=== PATIENT | female | born 1955 | race Caucasian/White ===

== ENCOUNTER 2017-10-30 08:06 | Inpatient (IN) ==
[2017-10-30 10:37] LABS: ABG Base Excess -2 mEq/L (-2 to 3); ABG HCO3 25 mEq/L (21-27); ABG Oxygen Saturation 68 % (95-98); ABG PCO2 56 mmHg (35-45); ABG PH 7.26 pH Units (7.32-7.45); ABG PO2 41 mmHg (85-104); ABG TCO2 27 mEq/L (20-26)
[2017-10-30] MEDS ORDERED: Naloxone 0.4 MG/ML INJ IVP PRN (10:37)
--- NOTE | 2017-10-30 10:51 | Internal Med History&Physical ---
Date of Encounter: 10/30/17 Time of Encounter: 10:00 Internal Medicine - H&P: HPI Chief complaint: Short summary of Admitted From: Hospital to Hospital Transfer Plans for Post Hospital Care: Home History of present illness: Patient is a 62-year-old female with past medical history significant for COPD, hypertension and being a 50 pack year smoker who presents as a transfer from [facility] on 10/30/17 due to acute hypoxic/hypercapnic respiratory failure secondary to COPD exacerbation. Patient reports a one-day history of worsening shortness of breath and increased nonproductive cough with wheezing. Patients breathing difficulty made her concerned and she decided to go to the [facility] ER for evaluation. At the ER in [facility], patient was found to have acute hypoxic/hypercapnic respiratory failure with respiratory acidosis and was placed on BiPAP for stabilization. Patient was subsequently transferred to [facility] for further evaluation. Patient does not wish to be intubated and has made herself a DNR CC. Past Med Surg Social Fam HX - Past Medical History Medical history: asthma, COPD, migraine Psychiatric history: depression - Past Surgical History Additional surgical history: TUBAL LIGATION - Social History Smoking Status: Current every day smoker Smokeless Tobacco Status: No Alcohol use: none Drug use: none - Additional Family History Additional family history: Noncontributory Internal Medicine - H&P: Meds Albuterol Sulfate [Ventolin Hfa] 18 gm IH DAILY 04/20/17 [History] Aspirin [Lo-Dose Aspirin EC] 81 mg PO DAILY 04/20/17 [History] Escitalopram [Lexapro] 20 mg PO DAILY 04/20/17 [History] Metoprolol [Lopressor] 25 mg PO BID 04/20/17 [History] Tiotropium Br/Olodaterol HCl [Stiolto Respimat Inhal [place]] 4 gm IH DAILY [History] Atorvastatin Calcium [Lipitor] 20 mg PO HS 10/30/17 [History] Buspirone HCl [Buspar] 7.5 mg PO BID 10/30/17 [History] Ipratropium/Albuterol Neb [Duoneb] 3 ml IH TID 10/30/17 [History] Roflumilast [Daliresp] 500 mcg PO DAILY 10/30/17 [History] 3 Allergy/AdvReac Type Severity Reaction Status Date / Time No Known Allergies Allergy Verified 10/30/17 10:09 All Systems PM: A 10-system review of systems was performed and is negative for pertinent findings except as documented above in the HPI. - Constitutional Vitals: Temp Pulse Resp BP Pulse Ox 97.9 F 105 18 121/79 93 10/30/17 09:53 10/30/17 09:53 10/30/17 09:53 10/30/17 09:53 10/30/17 09:53 General appearance: Present: severe distress - Eye Eye exam: Present: normal appearance - ENT ENT exam: Present: mucous membranes dry, mucous membranes moist - Respiratory Respiratory exam: Present: accessory muscle use, respiratory distress - Cardiovascular Cardiovascular exam: Present: RRR, +S1, +S2. Absent: diastolic murmur, gallop, rubs, systolic murmur - GI/Abdominal GI/Abdominal exam: Present: soft. Absent: distended - Extremities Exam Extremities exam: Absent: pedal edema - Neurological Exam Neurological exam: Present: oriented X3 - Psychiatric Psychiatric exam: Present: normal mood - Skin Skin exam: Present: normal color Internal Med - H&P Results - ABG Interpretation ABG results: 10/30/17 10:33 ABG pH 7.26 L ABG pCO2 56 H ABG pO2 41 L* ABG HCO3 25 ABG Total CO2 27 H ABG O2 Saturation 68 L ABG Base Excess -2 - Impressions ITS Impressions Chest X-Ray 10/30/17 10:23 IMPRESSION: 1. No acute cardiopulmonary disease. 2. Emphysema. D/ / 10/30/2017 10:44:37 Tawnya Palm MD / [facility] Interpreting Provider: Tawnya Palm MD - Assessment and plan (1) Acute respiratory failure with hypoxia and hypercapnia Current Visit: Yes Status: Acute Assessment and plan: Patient with reported acidic pH (7.2) and hypercapnia (CO2 64) on arterial blood gase taken at [facility] ABG has been repeated and results pending Chest x-ray ordered and pending Will continue BiPAP; patient is a DNR CC with no intubation Pulmonology has been consulted and appreciate any recommendations (2) COPD exacerbation Current Visit: Yes Status: Acute Assessment and plan: Chest x-ray pending Will treat with IV Solu-Medrol and IV azithromycin and continue BiPAP as above (3) HTN (hypertension), benign Current Visit: Yes Status: Acute Assessment and plan: Continue home medications (4) Mood disorder Current Visit: Yes Status: Acute Assessment and plan: Continue home medications (5) DVT prophylaxis Current Visit: Yes Status: Acute Assessment and plan: Subcutaneous heparin - Time Spent With Patient Total time spent is greater than 50% in coordination of care (as documented) at patient's floor/unit and/or counseling patient:
[2017-10-30] MEDS ORDERED: Azithromycin 500 MG in D5% in Water 250 ML IVPB SCH ×2 (11:00)
--- NOTE | 2017-10-30 11:07 | Pulmonology Consult Note ---
<LetiMarlybonnie M - Last Filed: 10/30/17 11:14> Date of Encounter: 10/30/17 Medications and Allergies Albuterol Sulfate [Ventolin Hfa] 18 gm IH DAILY 04/20/17 [History] Aspirin [Lo-Dose Aspirin EC] 81 mg PO DAILY 04/20/17 [History] Escitalopram [Lexapro] 20 mg PO DAILY 04/20/17 [History] Metoprolol [Lopressor] 25 mg PO BID 04/20/17 [History] Tiotropium Br/Olodaterol HCl [Stiolto Respimat Inhal [place]] 4 gm IH DAILY [History] Atorvastatin Calcium [Lipitor] 20 mg PO HS 10/30/17 [History] Buspirone HCl [Buspar] 7.5 mg PO BID 10/30/17 [History] Ipratropium/Albuterol Neb [Duoneb] 3 ml IH TID 10/30/17 [History] Roflumilast [Daliresp] 500 mcg PO DAILY 10/30/17 [History] 3 Allergy/AdvReac Type Severity Reaction Status Date / Time No Known Allergies Allergy Verified 10/30/17 10:09 All Systems: The remainder of the systems were reviewed and are negative Physical Examination Vital Signs: Vital Signs, Last 4 Hours Temp Pulse Resp BP Pulse Ox 10/30/17 09:53 97.9 F 105 18 121/79 93 Results - Laboratory Findings ABG ABG pH 7.26 pH Units (7.32-7.45) L 10/30/17 10:33 ABG pCO2 56 mmHg (35-45) H 10/30/17 10:33 ABG pO2 41 mmHg (85-104) L* 10/30/17 10:33 ABG O2 Saturation 68 % (95-98) L 10/30/17 10:33 Abnormal lab findings: Abnormal lab results ABG pH 7.26 pH Units (7.32-7.45) L 10/30/17 10:33 ABG pCO2 56 mmHg (35-45) H 10/30/17 10:33 ABG pO2 41 mmHg (85-104) L* 10/30/17 10:33 ABG Total CO2 27 mEq/L (20-26) H 10/30/17 10:33 ABG O2 Saturation 68 % (95-98) L 10/30/17 10:33 - Clinical Findings Intake & Output: Intake & Output 10/29/17 10/30/17 10/30/17 23:59 07:59 15:59 Weight 47.6 kg - Attending Attestation I examined this patient and my medical decision-making was reviewed with the Resident Physician. I agree with the documented findings, disposition and treatment plan as described except to the extent set forth below. Patient seen and examined. Labs, radiology, chart personally reviewed. Agree with resident's history and physical, assessment, plan with following comments: [employer] PROJECT MANAGER: Patient follows commands, Pulmonary: Acceptable oxygenation and ventilation on the noninvasive ventilation and she seems to be comfortable with adequate tidal volume. Patient is difficult stick and no need for more ABGs as long as patient mentation is normal and clinically will be sufficient to monitor the patient. Advised patient to quit smoking otherwise she will continue to have exacerbation of COPD and be compliance with her medications. Patient will be on bronchodilators and systemic steroid. As outpatient pulmonary rehabilitation will be important. Discussed with primary team and thank you for consultation <Rut Calderon - Last Filed: 10/30/17 21:19> Date of Encounter: 10/30/17 Time of Encounter: 11:06 Assessment and Plan (1) Acute respiratory failure with hypoxia and hypercapnia Current Visit: Yes Status: Acute Was transferred from [facility] ED due to respiratory distress. Her ABG showed respiratory acidosis, pH of 7.26 and PCO2 56, with PO2 41. -Does not want to be intubated -Continue Bipap, on 35 FiO2 with oxygen saturation of 97%. -Continue duonebs -Continue azithromycin -Continue IV solumedrol on 80 IV Q8HR, will decrease the dose in the morning (2) COPD exacerbation Current Visit: Yes Status: Acute Has history of COPD and was admitted 6 weeks ago for COPD exacerbation. She is on home oxygen of 3 liters daily and is not complain with it. Additionally, she continues to smoke and smokes 1 pack per day. Chest xray shows emphysematous changes. -Counseled on tobacco cessation -Continue nicotine transdermal patch -Continue BiPAP, duonebs, symbicort, IV solumedrol 80 mg Q8HR and azithromycin, day 1 History of Present Illness Consult date: 10/30/17 Requesting physician: Jamar Moreland Reason for consult: COPD Chief complaint: Shortness of breath History of present illness: Ms. Jolley is a 62 year old female who was seen at bedside this morning. She presented to the hospital due to shortness of breath. She has history of COPD and hypertension. She is on home oxygen 3 liters and a current smoker of 1 pack per day with 50 pack year history. She progressively worsening shortness of breath with increased use of her home oxygen. She was recently admitted for COPD exacerbation 6 weeks ago. She is not compliant on her home oxygen use and continues to smoke. She also elicits increased cough with white colored sputum production. She deneid recent travel but stated has been staying at the hospital with her sick mom for the past 2 weeks. Chest xray shows emphysematous changes. Her ABG was positive for hypoxemia with respiratory acidosis. She does not want to be intubated and signed papers for DNR/DNI. She denies fever, chills, nausea, vomiting or chest pain. Past Med Surg Social Fam HX - Past Medical History Medical history: asthma, COPD, migraine Psychiatric history: depression - Past Surgical History Additional surgical history: TUBAL LIGATION - Social History Smoking Status: Current every day smoker Smokeless Tobacco Status: No Alcohol use: none Drug use: none All Systems: The remainder of the systems were reviewed and are negative - Constitutional Constitutional: weight loss (unknown but endorsed weight loss), no chills, no fever(s) - EENT Nose, mouth and throat: no nasal congestion - Cardiovascular Cardiovascular: dyspnea, dyspnea on exertion, no chest pain, no diaphoresis - Respiratory Respiratory: cough (productive with white sputum), dyspnea, no wheezing - Gastrointestinal Gastrointestinal: no abdominal pain, no diarrhea - Neurological Neurological: no confusion, no weakness Physical Examination Vital Signs: Vital Signs, Last 4 Hours Temp Pulse Resp BP Pulse Ox 10/30/17 09:53 97.9 F 105 18 121/79 93 General appearance: alert (moderate repiratory distress) Eyes: nonicteric ENT: oropharynx moist Auscultation: left: rhonchi (left lober lobe), bilateral: diminished breath sounds (diminished in the lower lung lobes) Cardiovascular: regular rate and rhythm Gastrointestinal: normoactive bowel sounds, soft, non-tender Extremities: no edema (mild clubbing noted of all fingers) normal mental status (awake, alert and oriented to person, place and time) mood appropriate, affect normal Results - Laboratory Findings CBC and BMP: 10/30/17 11:18 10/30/17 11:18 ABG ABG pH 7.26 pH Units (7.32-7.45) L 10/30/17 10:33 ABG pCO2 56 mmHg (35-45) H 10/30/17 10:33 ABG pO2 41 mmHg (85-104) L* 10/30/17 10:33 ABG O2 Saturation 68 % (95-98) L 10/30/17 10:33 Abnormal lab findings: Abnormal lab results ABG pH 7.26 pH Units (7.32-7.45) L 10/30/17 10:33 ABG pCO2 56 mmHg (35-45) H 10/30/17 10:33 ABG pO2 41 mmHg (85-104) L* 10/30/17 10:33 ABG Total CO2 27 mEq/L (20-26) H 10/30/17 10:33 ABG O2 Saturation 68 % (95-98) L 10/30/17 10:33 - Diagnostic Findings Chest x-ray: image reviewed (emphysematous changes of all lung lobes) - Clinical Findings Intake & Output: Intake & Output 10/29/17 10/30/17 10/30/17 23:59 07:59 15:59 Weight 47.6 kg
[2017-10-30 11:29] LABS: Hematocrit 36.7 % (35.3-44.9); Hemoglobin 11.8 g/dL (11.5-15.4); Mean Corpuscular HGB Conc 32.2 g/dL (31.6-35.5); Mean Corpuscular Volume 93.4 fL (83.0-100.0); Mean Platelet Volume 9.4 fL (9.4-12.4); Platelet Count 187 K/mcL (140-400); Red Blood Count 3.93 M/mcL (3.82-4.97); Red Cell Distribution Width 13.2 % (11.5-14.5)
[2017-10-30] MEDS: Ipratropium/Albuterol Neb 3 ML IH SCH ×4 (11:32→23:41)
[2017-10-30 11:49] LABS: BUN/Creatinine Ratio 14 (6-26); Blood Urea Nitrogen 8 mg/dL (8-23); Calcium 8.6 mg/dL (8.6-10.3); Carbon Dioxide 21 mEq/L (23-29); Chloride 107 mEq/L (98-107); Glucose 158 mg/dL (70-105); Osmolality,Calculated 286 (280-300); Potassium 4.4 mEq/L (3.5-5.1); Sodium 137 mEq/L (136-145); eGFR For Non-African Americans > 60 (> 60)
[2017-10-30 11:51] LABS: Eosinophils # 0.1 K/mcL (0.0-0.6); Lymphocytes # 0.4 K/mcL (0.6-4.6); Neutrophils # 6.7 K/mcL (1.6-8.9); Platelet Estimate Normal (Normal)
[2017-10-30] MEDS: *HR* Heparin 5,000 UNIT/ML VIAL SQ SCH ×2 (12:27→21:16)
[2017-10-30] MEDS: MethylPREDNISolone 40 MG/ML VIAL IVP SCH ×2 (17:00→23:49)
[2017-10-30] MEDS: Budesonide/Formoterol 160/4.5 MDI IH SCH (22:35)
[2017-10-30] MEDS: Nicotine 21 MG PATCH.TD24 TD SCH (23:31)
[2017-10-31] MEDS: Ipratropium/Albuterol Neb 3 ML IH SCH ×6 (03:38→23:40)
[2017-10-31] MEDS: *HR* Heparin 5,000 UNIT/ML VIAL SQ SCH ×2 (05:57→15:14)
[2017-10-31] MEDS: Budesonide/Formoterol 160/4.5 MDI IH SCH ×2 (07:54→20:24)
[2017-10-31] MEDS: Aspirin Enteric Coated 81 MG Tablet PO SCH (08:34)
[2017-10-31] MEDS: Nicotine 21 MG PATCH.TD24 TD SCH (08:35)
[2017-10-31] MEDS: MethylPREDNISolone 40 MG/ML VIAL IVP SCH ×2 (08:35→15:15)
[2017-10-31] MEDS ORDERED: Patient Taking Own Medication 1 EACH PO SCH (09:00)
[2017-10-31] MEDS: Azithromycin 250 MG TABLET PO SCH (11:25)
--- NOTE | 2017-10-31 11:38 | Pulmonology Progress Note ---
Date of Encounter: 10/31/17 Time of Encounter: 11:00 Assessment and Plan (1) Acute and chronic respiratory failure Current Visit: Yes Status: Acute Agent presenting with acute on chronic hypoxic respiratory failure patient is off BiPAP doing well if she ends up and respiratory distress please use BiPAP when necessary. To continue current management of COPD. Does not do any exercise oxygen requirements before discharge. Might need 1 more day off steroids and antibiotics as patient is still moving not moving air as expected. Qualifiers: Respiratory failure complication: hypoxia Qualified Code(s): J96.21 - Acute and chronic respiratory failure with hypoxia (2) COPD exacerbation Current Visit: Yes Status: Acute Current regimen of bronchodilators, steroids, antibiotics. Reviewed with patient regarding outpatient COPD regimen seems to be adequate. Since she has frequent exacerbation she can be sent home on chronic azithromycin therapy that is to 250 mg every Tuesday. She will be sent home on steroid treatment taper over 12 days. Patient will need 6-8 weeks follow up with outpatient pulmonology patient might need one more day . Will sign off and call with questions . (3) Tobacco abuse counseling Current Visit: Yes Status: Acute Patient had tobacco abuse counseling was given in front of her family patient is contemplating to stop smoking. Subjective Principal diagnosis: acute exacerbation of COPD Interval history: Patient COPD symptoms are a lot better as she is off BiPAP and she eating and drinking says she feels a lot better than yesterday but she is not yet at baseline. She denies any chest pain, chest tightness, denies any fever or chills. Objective PUL Vital signs: Last Vital Signs Temp 98.2 F 10/31/17 10:44 Pulse 84 10/31/17 10:44 Resp 19 10/31/17 11:37 BP 107/67 10/31/17 10:44 Pulse Ox 97 10/31/17 11:37 General appearance: other (mild respiratory distress) Auscultation: left: rales, bilateral: diminished breath sounds, wheezes (some scattered wheezes ) Results - Laboratory Findings CBC and BMP: 10/30/17 11:18 10/30/17 11:18 ABG ABG pH 7.26 pH Units (7.32-7.45) L 10/30/17 10:33 ABG pCO2 56 mmHg (35-45) H 08/05/18 10:33 ABG pO2 41 mmHg (85-104) L* 10/30/17 10:33 ABG O2 Saturation 68 % (95-98) L 10/30/17 10:33 Abnormal lab findings: Abnormal lab results Lymphocytes # 0.4 K/mcL (0.6-4.6) L 10/30/17 11:18 ABG pH 7.26 pH Units (7.32-7.45) L 10/30/17 10:33 ABG pCO2 56 mmHg (35-45) H 10/30/17 10:33 ABG pO2 41 mmHg (85-104) L* 10/30/17 10:33 ABG Total CO2 27 mEq/L (20-26) H 10/30/17 10:33 ABG O2 Saturation 68 % (95-98) L 10/30/17 10:33 Carbon Dioxide 21 mEq/L (23-29) L 10/30/17 11:18 Creatinine 0.59 mg/dL (0.60-1.20) L 10/30/17 11:18 Glucose 158 mg/dL (70-105) H 10/30/17 11:18 - Clinical Findings Intake & Output: Intake & Output 10/30/17 10/31/17 10/31/17 23:59 07:59 15:59 Output Total 500 / 500 Balance -500 / -500 Weight 48.2 kg
--- NOTE | 2017-10-31 15:54 | Internal Med Progress Note ---
Hospitalist Progress Note - Encounter Date of Encounter: 10/31/17 Time of Encounter: 15:46 - Subjective Interval History: Patient is a 62-year-old female with past medical history significant for COPD, hypertension and being a 50 pack year smoker who presents as a transfer from [facility] on 10/30/17 due to acute hypoxic/hypercapnic respiratory failure secondary to COPD exacerbation. Patient reports a one-day history of worsening shortness of breath and increased nonproductive cough with wheezing. Patients breathing difficulty made her concerned and she decided to go to the [facility] ER for evaluation. At the ER in [facility], patient was found to have acute hypoxic/hypercapnic respiratory failure with respiratory acidosis and was placed on BiPAP for stabilization. Patient was subsequently transferred to [facility] for further evaluation. She is DNR CC. patient is doing better, able to be off BIPAP, she said she is feeling better, on nicotine patch, she is able to talk with full sentence. gerri chest pain, and dizziness. discussed to compliant with BIPAP. - Exam Vitals: Temp Pulse Resp BP Pulse Ox 98.2 F 103 19 107/67 97 10/31/17 15:32 10/31/17 15:32 10/31/17 15:45 10/31/17 15:45 10/31/17 15:45 Exam: CONSTITUTIONAL: patient appears as an age appropriate female in no acute distress. EYES Clear sclerae, bilateral pupils are equal, reactive to light. EMOI. RESPIRATORY: No accessory muscle use, bilateral diminished breath sounds to auscultation, no wheezing, no crackles/rales. CARDIOVASCULAR: Regular heart rate, normal S1 and S2, no murmurs GASTROINTESTINAL: bowel sounds present, soft, no tenderness. MUSCULOSKELETAL: Joints in normal range of motion, no clubbing, no edema, no cyanosis. Bilateral peripheral pulses 2+. NEUROLOGIC: CN II to XII are grossly intact, no focal neurological deficit. - Assessment and Plan (1) Acute respiratory failure with hypoxia and hypercapnia Current Visit: Yes Status: Acute Assessment and Plan: Patient has COPD on 3 L nasal cannula continuously at home. She presented with worsening shortness of breath, ABG shows hypoxia hyppercapnea She required a continuous BiPAP support. She feels much better, able to take BiPAP off for a break. We will continue IV steroids and BiPAP appreciate pulmonary consult help (2) COPD exacerbation Current Visit: Yes Status: Acute Assessment and Plan: continue azithromycin, solumedral 80 mg Q8, BiPAP, scheduled Nebs (3) HTN (hypertension), benign Current Visit: Yes Status: Acute Assessment and Plan: metoprolol (4) Mood disorder Current Visit: Yes Status: Acute DVT Prophylaxis: heparin SC - Time Spent with Patient Total time spent is greater than 50% in coordination of care (as documented) at patient's floor/unit and/or counseling patient: 25 - 35 minutes Plan of Care Discussed with: patient Internal Medicine: Result - Labs CBC & Chem 7: 10/30/17 11:18 10/30/17 11:18 - ABG Interpretation ABG results: ABG ABG pH 7.26 pH Units (7.32-7.45) L 10/30/17 10:33 ABG pCO2 56 mmHg (35-45) H 10/30/17 10:33 ABG pO2 41 mmHg (85-104) L* 10/30/17 10:33 ABG O2 Saturation 68 % (95-98) L 10/30/17 10:33
[2017-11-01] MEDS: MethylPREDNISolone 40 MG/ML VIAL IVP SCH ×4 (00:43→23:39)
[2017-11-01] MEDS: *HR* Heparin 5,000 UNIT/ML VIAL SQ SCH ×4 (00:43→23:39)
[2017-11-01] MEDS: Ipratropium/Albuterol Neb 3 ML IH SCH ×6 (03:45→22:50)
[2017-11-01 05:28] LABS: Basophils % 0.1 %; Hematocrit 31.1 % (35.3-44.9); Hemoglobin 10.6 g/dL (11.5-15.4); Immature Granulocytes % 0.6 % (0-4); Lymphocytes # 0.6 K/mcL (0.6-4.6); Lymphocytes % 5.7 %; Mean Corpuscular HGB Conc 34.1 g/dL (31.6-35.5); Mean Corpuscular Hemoglobin 30.5 pg (28.0-33.3); Mean Corpuscular Volume 89.6 fL (83.0-100.0); Mean Platelet Volume 9.5 fL (9.4-12.4); Monocytes # 0.1 K/mcL (0.0-1.3); Monocytes % 1.3 %; Platelet Count 175 K/mcL (140-400); Red Blood Count 3.47 M/mcL (3.82-4.97); Red Cell Distribution Width 13.3 % (11.5-14.5); Segmented Neutrophils % 92.3 %
[2017-11-01 05:49] LABS: BUN/Creatinine Ratio 33 (6-26); Blood Urea Nitrogen 16 mg/dL (8-23); Calcium 8.6 mg/dL (8.6-10.3); Carbon Dioxide 25 mEq/L (23-29); Chloride 105 mEq/L (98-107); Glucose 142 mg/dL (70-105); Magnesium 2.3 mg/dL (1.6-2.6); Osmolality,Calculated 286 (280-300); Potassium 3.8 mEq/L (3.5-5.1); Sodium 136 mEq/L (136-145); eGFR For Non-African Americans > 60 (> 60)
[2017-11-01] MEDS: Budesonide/Formoterol 160/4.5 MDI IH SCH ×2 (07:43→19:36)
[2017-11-01] MEDS: Aspirin Enteric Coated 81 MG Tablet PO SCH (08:49)
[2017-11-01] MEDS: Nicotine 21 MG PATCH.TD24 TD SCH (08:49)
[2017-11-01] MEDS: Roflumilast [Daliresp] 500 MCG PO SCH (08:51)
[2017-11-01] MEDS: Azithromycin 250 MG TABLET PO SCH (11:32)
--- NOTE | 2017-11-01 15:05 | Internal Med Progress Note ---
Hospitalist Progress Note - Encounter Date of Encounter: 11/01/17 Time of Encounter: 15:03 - Subjective Interval History: Patient is a 62-year-old female with past medical history significant for COPD, hypertension and being a 50 pack year smoker who presents as a transfer from [facility] on 10/30/17 due to acute hypoxic/hypercapnic respiratory failure secondary to COPD exacerbation. Patient reports a one-day history of worsening shortness of breath and increased nonproductive cough with wheezing. Patients breathing difficulty made her concerned and she decided to go to the [facility] ER for evaluation. At the ER in [facility], patient was found to have acute hypoxic/hypercapnic respiratory failure with respiratory acidosis and was placed on BiPAP for stabilization. Patient was subsequently transferred to [facility] for further evaluation. She is DNR CC. Patient is doing much better today on 3 L nasal cannula, she has bilateral good air movement. Scattered wheezing. But she still have extremely shortness of breasts with mild exertion. Has not been able to cough up any mucus. We will reduce steroids dose, possible discharge tomorrow. case discussed with pulmonary, they signed off today, recommended azithromycin 250 on Tuesday. - Exam Vitals: Temp Pulse Resp BP Pulse Ox 97.8 F 92 16 116/72 96 11/01/17 12:03 11/01/17 12:03 11/01/17 12:03 11/01/17 06:34 11/01/17 12:03 - Assessment and Plan (1) Acute respiratory failure with hypoxia and hypercapnia Current Visit: Yes Status: Acute Assessment and Plan: Patient has COPD on 3 L nasal cannula continuously at home. She presented with worsening shortness of breath, ABG shows hypoxia hyppercapnea She required a continuous BiPAP support. She feels much better, on 3 L NC, noctunal BIPAP, reduced IV steroid to 40 mg Q8. will need to discharge on azithromycin 250 mg MWF per pulmonary (2) COPD exacerbation Current Visit: Yes Status: Acute (3) HTN (hypertension), benign Current Visit: Yes Status: Acute (4) Mood disorder Current Visit: Yes Status: Acute - Time Spent with Patient Total time spent is greater than 50% in coordination of care (as documented) at patient's floor/unit and/or counseling patient: 25 - 35 minutes Internal Medicine: Result - Labs CBC & Chem 7: 11/01/17 04:55 11/01/17 04:55 Labs: Short CBC 11/01/17 Range/Units 04:55 WBC 9.8 (4.3-11.1) K/mcL Hgb 10.6 L (11.5-15.4) g/dL Hct 31.1 L (35.3-44.9) % Plt Count 175 (140-400) K/mcL Neutrophils # 9.0 H (1.6-8.9) K/mcL BMP 11/01/17 04:55 Sodium 136 Potassium 3.8 Chloride 105 Carbon Dioxide 25 BUN 16 Creatinine 0.48 L Glucose 142 H Calcium 8.6 - ABG Interpretation ABG results: ABG ABG pH 7.26 pH Units (7.32-7.45) L 10/30/17 10:33 ABG pCO2 56 mmHg (35-45) H 10/30/17 10:33 ABG pO2 41 mmHg (85-104) L* 10/30/17 10:33 ABG O2 Saturation 68 % (95-98) L 10/30/17 10:33 Consult Discharge Plan - Plan Referrals: Tuyet Fisher, PROGRAM DIRECTOR SUBSTANCE ABUSE [Primary Care Provider] -
[2017-11-02] MEDS: Ipratropium/Albuterol Neb 3 ML IH SCH ×3 (04:03→11:18)
[2017-11-02] MEDS: *HR* Heparin 5,000 UNIT/ML VIAL SQ SCH ×2 (06:04→14:22)
[2017-11-02] MEDS: Budesonide/Formoterol 160/4.5 MDI IH SCH (07:23)
[2017-11-02 07:58] VITALS: BP 132/73
[2017-11-02] MEDS: Aspirin Enteric Coated 81 MG Tablet PO SCH (08:54)
[2017-11-02] MEDS: MethylPREDNISolone 40 MG/ML VIAL IVP SCH (08:55)
[2017-11-02] MEDS: Nicotine 21 MG PATCH.TD24 TD SCH (08:55)
[2017-11-02] MEDS: Roflumilast [Daliresp] 500 MCG PO SCH (09:00)
[2017-11-02] MEDS: Azithromycin 250 MG TABLET PO SCH (11:30)
[2017-11-02] MEDS ORDERED: predniSONE 20 MG TABLET PO ONE (13:52)
--- NOTE | 2017-11-02 13:56 | Discharge Summary ---
- NOTES TO OUTPATIENT PROVIDER Notes to Outpatient Provider: Patient was admitted for severe COPD exacerbation. Will be discharged on 12 day prednisone taper. Per pulmonology recommendations we will continue 250 mg of azithromycin chronically every Tuesday and Tuesday. Patient will be started on chronic azithromycin therapy and should be weaned off Lexapro due to QT prolongation; she has tolerated this combination many times before per patient. Date of Encounter: 11/02/17 Time of Encounter: 13:53 - Discharge Diagnosis (1) Acute respiratory failure with hypoxia and hypercapnia Priority: Primary Status: Acute (2) COPD exacerbation Priority: Secondary Status: Acute (3) HTN (hypertension), benign Priority: Secondary Status: Acute (4) Mood disorder Priority: Secondary Status: Acute (5) DVT prophylaxis Priority: Secondary Status: Acute (6) Tobacco dependence due to cigarettes Priority: Secondary Status: Acute Assessment and Plan: Counseled on cessation Hospital course: Ms. Knight is a 62 year old female who presented to the emergency department with shortness of breath and severe respiratory failure. Patient noticed to be hypoxic and hypercapnic and had a respiratory acidosis. Due to the patient's wish to not be intubated she was put on noninvasive ventilation and high-dose steroids. The patient improved rapidly over a few days and has been off BiPAP for over almost 2 days at time of discharge. Patient steroids were weaned in the hospital and will be continued as a 12 day taper that was extending to the patient and prescription was given. Pulmonology saw the patient and also recommended chronic azithromycin therapy with 250 mg every Tuesday due to her frequent exacerbations. She was given prescription for this as well. Due to the patient's chronic azithromycin therapy now extending to the patient that she will need to be weaned off Lexapro by primary care physician due to QT prolongation; patient is aware of this however she has tolerated this medication combination many times in the past. Discharge patient did not have any complaints and has very good air movement with almost no wheezing. Patient will continue on her home oxygen therapy at 3 L/m. Patient was counseled many times a smoking cessation throughout her stay. It was extending to the patient that she will likely have frequent exacerbations due to her continued smoking and severity of her COPD. Discharge discussed with: patient, nurse Time spent discussing smoking cessation with patient: 3 to 10 minutes - Time Spent with Patient Total time spent providing and/or coordinating discharge services: Greater than 30 minutes - Discharge Medications Prescriptions: Azithromycin [Zithromax] 250 mg PO 3XW 30 Days #15 tablet predniSONE [PredniSONE] 10 mg PO DAILY 12 Days #42 tablet Home Medications: Albuterol Sulfate [Ventolin Hfa] 18 gm IH DAILY 04/20/17 [History] Aspirin [Lo-Dose Aspirin EC] 81 mg PO DAILY 04/20/17 [History] Escitalopram [Lexapro] 20 mg PO DAILY 04/20/17 [History] Metoprolol [Lopressor] 25 mg PO BID 04/20/17 [History] Tiotropium Br/Olodaterol HCl [Stiolto Respimat Inhal [place]] 4 gm IH DAILY [History] Atorvastatin Calcium [Lipitor] 20 mg PO HS 10/30/17 [History] Buspirone HCl [Buspar] 7.5 mg PO BID 10/30/17 [History] Ipratropium/Albuterol Neb [Duoneb] 3 ml IH TID 10/30/17 [History] Roflumilast [Daliresp] 500 mcg PO DAILY 10/30/17 [History] Azithromycin [Zithromax] 250 mg PO 3XW 30 Days #15 tablet 11/02/17 [Rx] predniSONE [PredniSONE] 10 mg PO DAILY 12 Days #42 tablet 11/02/17 [Rx] Allergies/Adverse Reactions: 3 Allergy/AdvReac Type Severity Reaction Status Date / Time No Known Allergies Allergy Verified 10/30/17 10:09 Date of admission: 10/31/17 17:45 Primary care physician: Tuyet Fisher CNP Consults: 10/30/17 10:47 Consult to Pulmonology [CONS] Routine Consulting Provider: [facility] Reason for Consult: COPD exacerbation with acute respiratory failure Call Completed: Yes - Constitutional Vitals: Temp Pulse Resp BP Pulse Ox 97.9 F 105 18 132/73 97 11/02/17 07:57 11/02/17 07:57 11/02/17 11:18 11/02/17 07:57 11/02/17 11:18 General appearance: Present: severe distress Exam: Constitutional: No acute distress, Alert, appears comfortable Psych: AAO x 3 HEENT: NCAT, EOMI Neck: supple, no JVD Cardio: regular rate and rhythm, +s1s2, no murmurs/rubs/gallops, no JVD Resp: Slightly diminished breath sounds but very good air exchange, faint expiratory wheezes, no respiratory distress Abd: soft, non tender/non distended, positive bowel sounds, no gaurding/reboud/ ridgitity Extremities: no clubbing/cyanosis/edema appreciated Neuro: no focal deficits appreciated Lymph: no cervical/supraclavicular adenopahty apprecitated - Patient Status Disposition: Home, Self-Care Condition: Good Overall status at discharge: patient is back to baseline - Discharge Instructions Instructions: Acute Respiratory Distress Syndrome (DC), How to Stop Smoking (DC ), Chronic Obstructive Pulmonary Disease (DC) Follow Up With: Tuyet Fisher SHIRT FOLDER [Primary Care Provider] - - Diet and Activity Activity: increase activity as tolerated Diet: advance to your usual diet
== END 2017-11-02 14:49 | disposition home or self-care (01) | DRG 190 ==
LOC: 2ANU → SUATTDRO 09:38
PROVIDERS: ADMIT Hospitalist; ATTEND Hospitalist

== ENCOUNTER 2017-11-25 01:47 | Observation (INO) ==
[2017-11-25] MEDS ORDERED: Naloxone 0.4 MG/ML INJ IVP PRN (05:22)
--- NOTE | 2017-11-25 05:30 | Internal Med History&Physical ---
<Lobo Armenta - Last Filed: 11/25/17 05:26> Date of Encounter: 11/25/17 Time of Encounter: 05:27 Internal Medicine - H&P: HPI Chief complaint: Shortness of breath Admitted From: Hospital to Hospital Transfer Plans for Post Hospital Care: Home History of present illness: Ms. Knight is a 62 year old female with history of COPD on 3 L oxygen at home presented with chief complaint of shortness of breath at [facility]. Patient reports her shortness of breath started yesterday and progressively worsened with worsening cough and sputum production. She is usually on 3 L oxygen and had to increase it to 5 L. Her symptoms were refractory to nebulizer and albuterol inhaler treatments. She denies fevers, chills, congestion, rhinorrhea, chest pain sick contacts. She is currently smoker trying to quit. Reports she has been under a lot of stress as her mother just a few days ago and her son is getting tomorrow. At [facility] ABG was done which showed pH of 7.27 and a PCO2 of 68, PO2 93 bicarbonate of 31. She was placed on BiPAP and pH improved to 7.3 and PCO2 52. She was then transferred to [facility] for further treatment. Past Med Surg Social Fam HX - Past Medical History Medical history: asthma, COPD, migraine Psychiatric history: depression - Past Surgical History Additional surgical history: TUBAL LIGATION - Social History Smoking Status: Current every day smoker Smokeless Tobacco Status: No Alcohol use: none Drug use: none Internal Medicine - H&P: Meds Albuterol Sulfate [Ventolin Hfa] 18 gm IH DAILY 04/20/17 [History] Aspirin [Lo-Dose Aspirin EC] 81 mg PO DAILY 04/20/17 [History] Escitalopram [Lexapro] 20 mg PO DAILY 04/20/17 [History] Metoprolol [Lopressor] 25 mg PO BID 04/20/17 [History] Tiotropium Br/Olodaterol HCl [Stiolto Respimat Inhal [place]] 4 gm IH DAILY [History] Atorvastatin Calcium [Lipitor] 20 mg PO HS 10/30/17 [History] Buspirone HCl [Buspar] 7.5 mg PO BID 10/30/17 [History] Ipratropium/Albuterol Neb [Duoneb] 3 ml IH TID 10/30/17 [History] Roflumilast [Daliresp] 500 mcg PO DAILY 10/30/17 [History] Azithromycin [Zithromax] 250 mg PO 3XW 30 Days #15 tablet 11/02/17 [Rx] predniSONE [PredniSONE] 10 mg PO DAILY 12 Days #42 tablet 11/02/17 [Rx] 3 Allergy/AdvReac Type Severity Reaction Status Date / Time No Known Allergies Allergy Verified 10/30/17 10:09 All Systems PM: A 10-system review of systems was performed and is negative for pertinent findings except as documented above in the HPI. Review of systems: Constitutional: Denies fever, chills. Denies weight loss HEENT: Denies headache, vision changes, neck pain, sore throat, rhinorrhea Heart: Denies chest pain palpitations Lungs: Poor shortness of breath, cough, sputum production Abdomen: Denies abdominal pain nausea vomiting diarrhea Back: Denies back pain Kidney: Denies dysuria, hematuria Skin: Denies rash, lesions Extremities: Denies swelling, pain Neuro: Denies numbness and tingling - Constitutional Vitals: Temp Pulse Resp BP Pulse Ox 97.9 F 100 21 132/77 99 11/25/17 04:25 11/25/17 04:25 11/25/17 04:25 11/25/17 04:25 11/25/17 04:25 Exam: General: Pleasant, thin without distress HEENT: Head atraumatic, normocephalic, EOMI, PERRL, neck nontender to palpation , absent lymphadenopathy, Moist Mucous Membranes, Heart: Sinus tachycardia Lungs: Bilaterally diminished, wheezing, on BiPAP Abdomen: Soft nontender, nondistended positive bowel sounds Skin: warm and dry, absent rash Extremities: Absent pedal edema, Neuro: Cranial nerves II through XII intact, UE and LE sensation equal bilaterally, UE and LEstrength 5/5, alert oriented 3, Vascular: Pedal and radial pulses 2 out of 4 - Assessment and plan (1) Acute respiratory failure with hypoxia and hypercapnia Current Visit: Yes Status: Acute Assessment and plan: 62-year-old female presents with chief, shortness of breath She has a extensive history of tobacco use, COPD Secondary to COPD exacerbation requiring 5 L oxygen usually on 3 L at home ABG shows a pH of 7.2 with a PCO2 of 68 which then improved with BiPAP to pH of 7.3 and a PCO2 of 52 Lung exam shows diffuse wheezing bilaterally We will obtain chest x-ray Patient is afebrile with a normal white blood cell count Plan: We will start scheduled DuoNeb's, steroids, azithromycin. We will continue BiPAP (2) COPD exacerbation Current Visit: Yes Status: Acute Assessment and plan: Patient presents with worsening cough, shortness of breath, wheezing, increasing oxygen requirements, worsening sputum production Chest x-ray DuoNeb's, prednisone, azithromycin. (3) HTN (hypertension), benign Current Visit: Yes Status: Acute Assessment and plan: Patient has history of hypertension Controlled Continue metoprolol (4) DVT prophylaxis Current Visit: Yes Status: Acute Assessment and plan: Heparin subcutaneous (5) Tobacco abuse counseling Current Visit: Yes Status: Acute Assessment and plan: Patient educated on smoking cessation. Reports she is trying to quit. Her mother just a few days back and she has been under a lot of stress and increased her use of cigarettes. - Time Spent With Patient Total time spent is greater than 50% in coordination of care (as documented) at patient's floor/unit and/or counseling patient: <Timmy Silvestre - Last Filed: 11/25/17 06:25> Date of Encounter: 11/25/17 Internal Medicine - H&P: HPI History of present illness: Ms. Knight is a 62 year old female All Systems PM: A 10-system review of systems was performed and is negative for pertinent findings except as documented above in the HPI. - Constitutional Vitals: Temp Pulse Resp BP Pulse Ox 97.9 F 100 21 132/77 99 11/25/17 04:25 11/25/17 04:25 11/25/17 04:25 11/25/17 04:25 11/25/17 04:25 Internal Med - H&P Results - Labs CBC & Chem 7: 11/25/17 05:32 Labs: BMP 11/25/17 05:32 Sodium 136 Potassium 4.4 Chloride 108 H Carbon Dioxide 24 BUN 12 Creatinine 0.46 L Glucose 161 H Calcium 8.6 - Assessment and plan (1) HTN (hypertension), benign Current Visit: Yes Status: Acute (2) DVT prophylaxis Current Visit: Yes Status: Acute (3) Acute respiratory failure with hypoxia and hypercapnia Current Visit: Yes Status: Acute (4) COPD exacerbation Current Visit: Yes Status: Acute (5) Tobacco abuse counseling Current Visit: Yes Status: Acute - Time Spent With Patient Total time spent is greater than 50% in coordination of care (as documented) at patient's floor/unit and/or counseling patient: - Attending Attestation 62-year-old woman with a history of chronic respiratory failure due to COPD who remains tobacco dependent presenting on transfer from outside hospital where she presented with increasing shortness of breath and chest tightness and was found to have acute hypercapnic respiratory failure. She was placed on BiPAP with improvement in her clinical status and also in her ABG findings. She is transferred here for ongoing care as in their hospital Bipap patients are not admitted. On my assessment she was seen sitting comfortably in bed with her mask in place stating that her breathing had improved. She reports occasional cough that is productive of scant sputum and no associated chest pain. Physical exam remarkable for reduced air entry bilaterally with scattered wheezes. No peripheral signs of edema. Labs reviewed from outside hospital were remarkable for an APG pH of 7.22 which increased to 7.33 and PCO2 reduction from 69 to 55. We will continue management for acute hypercapnic hypoxic respiratory failure due to COPD exacerbation with BiPAP therapy here and place on prednisone 1 mg/ kg daily with standing nebulizer therapy of albuterol and ipratropium every 4 hours. Consider repeat ABG during the day and discontinuation of BiPAP so she can eat. Monitor on supplemental oxygen to maintain O2 saturation above 92%. May benefit from short course of azithromycin. Ongoing counseling was given for her nicotine habit and resources made available as needed. Rest of management per resident's note.
[2017-11-25] MEDS: *HR* Heparin 5,000 UNIT/ML VIAL SQ SCH ×3 (05:57→21:55)
[2017-11-25] MEDS ORDERED: methylPREDNISolone 125 MG/2 ML VIAL IVP SCH (06:00)
[2017-11-25 06:10] LABS: BUN/Creatinine Ratio 26 (6-26); Blood Urea Nitrogen 12 mg/dL (8-23); Calcium 8.6 mg/dL (8.6-10.3); Carbon Dioxide 24 mEq/L (23-29); Chloride 108 mEq/L (98-107); Glucose 161 mg/dL (70-105); Osmolality,Calculated 285 (280-300); Potassium 4.4 mEq/L (3.5-5.1); Sodium 136 mEq/L (136-145); eGFR For Non-African Americans > 60 (> 60)
[2017-11-25 07:03] LABS: Hematocrit 34.4 % (35.3-44.9); Hemoglobin 11.3 g/dL (11.5-15.4); Mean Corpuscular HGB Conc 32.8 g/dL (31.6-35.5); Mean Corpuscular Hemoglobin 31.4 pg (28.0-33.3); Mean Corpuscular Volume 95.6 fL (83.0-100.0); Platelet Count 187 K/mcL (140-400); Red Cell Distribution Width 13.2 % (11.5-14.5)
[2017-11-25 07:53] LABS: Lymphocytes # 0.3 K/mcL (0.6-4.6); Neutrophils # 4.4 K/mcL (1.6-8.9)
[2017-11-25 07:55] LABS: Platelet Estimate Normal (Normal)
[2017-11-25] MEDS: Ipratropium/Albuterol Neb 3 ML IH SCH ×6 (08:00→23:28)
[2017-11-25] MEDS ORDERED: Azithromycin 250 MG TABLET PO SCH ×2 (09:00→10:15)
[2017-11-25] MEDS ORDERED: predniSONE 20 MG TABLET PO SCH (09:00)
[2017-11-25] MEDS: Aspirin Enteric Coated 81 MG Tablet PO SCH (09:28)
--- NOTE | 2017-11-25 11:43 | Event Note ---
Date of Encounter: 11/25/17 Time of Encounter: 09:50 62-year-old female with history of oxygen dependent COPD is admitted for hypoxic and hypercarbic resting failure secondary to COPD exacerbation. Unable to find CXR record from outside hospital so will obtain on here. Required BiPaP initially which can now be intermittently used. Continue IV solumedrol, azithromycin, and bronchodilators. May need home BiPaP evaluation before d/c.
[2017-11-25] MEDS: MethylPREDNISolone 40 MG/ML VIAL IVP SCH ×2 (14:28→21:54)
[2017-11-25] MEDS ORDERED: GuaiFENesin Liq 200 MG/10 ML UDC PO PRN (16:19)
[2017-11-26] MEDS: Ipratropium/Albuterol Neb 3 ML IH SCH ×6 (03:00→23:02)
[2017-11-26 04:28] LABS: Basophils % 0.2 %; Hematocrit 29.3 % (35.3-44.9); Lymphocytes # 0.7 K/mcL (0.6-4.6); Lymphocytes % 11.4 %; Mean Corpuscular HGB Conc 32.8 g/dL (31.6-35.5); Mean Corpuscular Hemoglobin 30.3 pg (28.0-33.3); Mean Corpuscular Volume 92.4 fL (83.0-100.0); Mean Platelet Volume 9.4 fL (9.4-12.4); Monocytes # 0.2 K/mcL (0.0-1.3); Monocytes % 3.8 %; Neutrophils # 5.1 K/mcL (1.6-8.9); Platelet Count 200 K/mcL (140-400); Red Blood Count 3.17 M/mcL (3.82-4.97); Red Cell Distribution Width 13.2 % (11.5-14.5); Segmented Neutrophils % 83.6 %
[2017-11-26 04:35] LABS: Hemoglobin 9.6 g/dL (11.5-15.4)
[2017-11-26 04:55] LABS: BUN/Creatinine Ratio 28 (6-26); Blood Urea Nitrogen 13 mg/dL (8-23); Calcium 8.9 mg/dL (8.6-10.3); Carbon Dioxide 25 mEq/L (23-29); Chloride 105 mEq/L (98-107); Glucose 147 mg/dL (70-105); Osmolality,Calculated 287 (280-300); Potassium 3.8 mEq/L (3.5-5.1); Sodium 137 mEq/L (136-145); eGFR For Non-African Americans > 60 (> 60)
[2017-11-26] MEDS: *HR* Heparin 5,000 UNIT/ML VIAL SQ SCH ×3 (05:54→20:31)
[2017-11-26] MEDS: MethylPREDNISolone 40 MG/ML VIAL IVP SCH ×3 (05:54→20:26)
--- NOTE | 2017-11-26 09:19 | Internal Med Progress Note ---
Hospitalist Progress Note - Encounter Date of Encounter: 11/26/17 Time of Encounter: 09:16 - Subjective Interval History: Ms. Knight is a 62 year old female with history of COPD on 3 L oxygen at home presented with chief complaint of shortness of breath at [facility]. Patient reports her shortness of breath started yesterday and progressively worsened with worsening cough and sputum production. She is usually on 3 L oxygen and had to increase it to 5 L. She is currently smoker trying to quit. Reports she has been under a lot of stress as her mother just a few days ago and her son is getting tomorrow. At [facility] ABG was done which showed pH of 7.27 and a PCO2 of 68, PO2 93 bicarbonate of 31. She was placed on BiPAP and pH improved to 7.3 and PCO2 52. She was then transferred to [facility] for further treatment. Patient is doing better, able to come off BIPAP, on 3 l NC, but she has diminished BS, very SOB Will continue IV steroids she was discharged on azithromycin QoD, will change to levaquin add incentive spirometry - Exam Vitals: Temp Pulse Resp BP Pulse Ox 98.6 F 133 16 105/66 95 11/26/17 08:34 11/26/17 08:34 11/26/17 08:34 11/26/17 08:34 11/26/17 08:34 Exam: CONSTITUTIONAL: patient appears as an age appropriate female in no acute distress. EYES Clear sclerae, bilateral pupils are equal, reactive to light. EMOI. RESPIRATORY: No accessory muscle use, bilateral diminished BS to auscultation, no wheezing, no crackles/rales. CARDIOVASCULAR: Regular heart rate, normal S1 and S2, no murmurs GASTROINTESTINAL: bowel sounds present, soft, no tenderness. MUSCULOSKELETAL: Joints in normal range of motion, no clubbing, no edema, no cyanosis. Bilateral peripheral pulses 2+. NEUROLOGIC: CN II to XII are grossly intact, no focal neurological deficit. - Assessment and Plan (1) Acute respiratory failure with hypoxia and hypercapnia Current Visit: No Status: Acute Assessment and Plan: 62-year-old female presents with chief, shortness of breath She has a extensive history of tobacco use, COPD Secondary to COPD exacerbation, she waas just discharged on 11/02 on azithromycin requiring 5 L oxygen usually on 3 L at home ABG shows a pH of 7.2 with a PCO2 of 68 which then improved with BiPAP to pH of 7.3 and a PCO2 of 52 Lung exam shows diffuse wheezing bilaterally, CXR is negativ efor pneumona Patient is afebrile with a normal white blood cell count continue scheduled DuoNeb's, steroids,change azithromycin to levaquin add incentive spirometry (2) COPD exacerbation Current Visit: No Status: Acute Assessment and Plan: active smoking, she has deminished BS, SOB with minimal exertion contineu ATB, IV steroids, scheduled Nebs (3) HTN (hypertension), benign Current Visit: Yes Status: Acute Assessment and Plan: contineu home meds (4) DVT prophylaxis Current Visit: Yes Status: Acute Assessment and Plan: heparin SC (5) Tobacco abuse counseling Current Visit: Yes Status: Acute Assessment and Plan: smoking cessation discussed - Time Spent with Patient Total time spent is greater than 50% in coordination of care (as documented) at patient's floor/unit and/or counseling patient: 25 - 35 minutes Internal Medicine: Result - Labs CBC & Chem 7: 11/26/17 03:37 11/26/17 03:37 Labs: Short CBC 11/26/17 Range/Units 03:37 WBC 6.1 (4.3-11.1) K/mcL Hgb 9.6 L D (11.5-15.4) g/dL Hct 29.3 L (35.3-44.9) % Plt Count 200 (140-400) K/mcL Neutrophils # 5.1 (1.6-8.9) K/mcL BMP 11/26/17 03:37 Sodium 137 Potassium 3.8 Chloride 105 Carbon Dioxide 25 BUN 13 Creatinine 0.47 L Glucose 147 H Calcium 8.9 - Impressions Impressions Chest X-Ray 11/25/17 11:06 IMPRESSION: 1. No acute abnormality. D/ / Jose Juan Noyola MD / Jose Juan Noyola MD Interpreting Provider: Jose Juan Noyola MD Consult Discharge Plan - Plan Referrals: Tuyet Fisher, MEASUREMENT ANALYST [Primary Care Provider] -
[2017-11-26] MEDS: Aspirin Enteric Coated 81 MG Tablet PO SCH (09:51)
[2017-11-26] MEDS: levoFLOXacin 750 MG TABLET PO SCH (09:51)
[2017-11-26] MEDS ORDERED: Azithromycin 250 MG TABLET PO SCH (10:15)
[2017-11-26] MEDS: Nicotine 21 MG PATCH.TD24 TD SCH (11:25)
[2017-11-27] MEDS: Ipratropium/Albuterol Neb 3 ML IH SCH ×6 (03:08→23:22)
[2017-11-27] MEDS: MethylPREDNISolone 40 MG/ML VIAL IVP SCH ×2 (05:37→16:59)
[2017-11-27] MEDS: *HR* Heparin 5,000 UNIT/ML VIAL SQ SCH ×3 (06:06→21:54)
--- NOTE | 2017-11-27 09:26 | Internal Med Progress Note ---
Hospitalist Progress Note - Encounter Date of Encounter: 11/27/17 Time of Encounter: 09:22 - Subjective Interval History: Ms. Knight is a 62 year old female with history of COPD on 3 L oxygen at home presented with chief complaint of shortness of breath at [facility]. Patient reports her shortness of breath started yesterday and progressively worsened with worsening cough and sputum production. She is usually on 3 L oxygen and had to increase it to 5 L. She is currently smoker trying to quit. Reports she has been under a lot of stress as her mother just a few days ago and her son is getting tomorrow. At [facility] ABG was done which showed pH of 7.27 and a PCO2 of 68, PO2 93 bicarbonate of 31. She was placed on BiPAP and pH improved to 7.3 and PCO2 52. She was then transferred to [facility] for further treatment. Patient is doing better, able to come off BIPAP, on 3 l NC, but she has diminished BS, still very SOB with mild exertion, congested, unalbe to cough up sputum Will continue IV steroids and levaquin add incentive spirometry possible change to oral steroid tomorrow - Exam Vitals: Temp Pulse Resp BP Pulse Ox 98.0 F 85 15 111/67 98 11/27/17 06:46 11/27/17 06:46 11/27/17 06:46 11/27/17 06:46 11/27/17 06:46 Exam: CONSTITUTIONAL: patient appears as an age appropriate female in no acute distress. EYES Clear sclerae, bilateral pupils are equal, reactive to light. EMOI. RESPIRATORY: No accessory muscle use, bilateral diminished BS to auscultation, no wheezing, no crackles/rales. CARDIOVASCULAR: Regular heart rate, normal S1 and S2, no murmurs GASTROINTESTINAL: bowel sounds present, soft, no tenderness. MUSCULOSKELETAL: Joints in normal range of motion, no clubbing, no edema, no cyanosis. Bilateral peripheral pulses 2+. NEUROLOGIC: CN II to XII are grossly intact, no focal neurological deficit. - Assessment and Plan (1) Acute respiratory failure with hypoxia and hypercapnia Current Visit: No Status: Acute Assessment and Plan: 62-year-old female presents with chief, shortness of breath She has a extensive history of tobacco use, COPD Secondary to COPD exacerbation, she waas just discharged on 11/02 on azithromycin requiring 5 L oxygen and BIPAP on admission, usually on 3 L at home ABG shows a pH of 7.2 with a PCO2 of 68 which then improved with BiPAP to pH of 7.3 and a PCO2 of 52 CXR is negative for pneumona Patient is afebrile with a normal white blood cell count continue scheduled DuoNeb's, steroids,change azithromycin to levaquin add incentive spirometry Her wheezing improved, still has very deminished BS, SOB with mild exertion patient is encouraged to wear BIPAP at night wean steroid as able (2) COPD exacerbation Current Visit: No Status: Acute Assessment and Plan: active smoking, placed on nicotine patch she has deminished BS, SOB with minimal exertion contineu ATB, IV steroids, scheduled Nebs (3) HTN (hypertension), benign Current Visit: Yes Status: Acute Assessment and Plan: contineu home meds (4) DVT prophylaxis Current Visit: Yes Status: Acute Assessment and Plan: heparin SC (5) Tobacco abuse counseling Current Visit: Yes Status: Acute Assessment and Plan: on nicotine patch - Time Spent with Patient Total time spent is greater than 50% in coordination of care (as documented) at patient's floor/unit and/or counseling patient: Internal Medicine: Result - Labs CBC & Chem 7: 11/26/17 03:37 11/26/17 03:37 Consult Discharge Plan - Plan Referrals: Tuyet Fisher CNP [Primary Care Provider] -
[2017-11-27] MEDS: Aspirin Enteric Coated 81 MG Tablet PO SCH (09:48)
[2017-11-27] MEDS: Nicotine 21 MG PATCH.TD24 TD SCH (09:49)
[2017-11-27] MEDS: levoFLOXacin 750 MG TABLET PO SCH (09:49)
[2017-11-28] MEDS: Ipratropium/Albuterol Neb 3 ML IH SCH ×3 (03:47→11:28)
[2017-11-28] MEDS: MethylPREDNISolone 40 MG/ML VIAL IVP SCH (05:33)
[2017-11-28] MEDS: *HR* Heparin 5,000 UNIT/ML VIAL SQ SCH (05:35)
[2017-11-28] MEDS: Nicotine 21 MG PATCH.TD24 TD SCH (08:27)
[2017-11-28] MEDS: Aspirin Enteric Coated 81 MG Tablet PO SCH (08:27)
[2017-11-28] MEDS: levoFLOXacin 750 MG TABLET PO SCH (08:27)
--- NOTE | 2017-11-28 10:09 | Discharge Summary ---
Date of Encounter: 11/28/17 Time of Encounter: 10:04 - Discharge Diagnosis (1) Acute respiratory failure with hypoxia and hypercapnia Priority: Primary Status: Resolved (2) COPD exacerbation Priority: Secondary Status: Resolved (3) HTN (hypertension), benign Priority: Secondary Status: Chronic (4) DVT prophylaxis Priority: Primary Status: Resolved (5) Tobacco abuse counseling Priority: Secondary Status: Chronic Hospital course: Ms. Knight is a 62 year old female with history of COPD on 3 L oxygen at home presented with chief complaint of shortness of breath at [facility]. Patient reports her shortness of breath started yesterday and progressively worsened with worsening cough and sputum production. She is usually on 3 L oxygen and had to increase it to 5 L. She is currently smoker trying to quit. Reports she has been under a lot of stress as her mother just a few days ago and her son is getting tomorrow. At [facility] ABG was done which showed pH of 7.27 and a PCO2 of 68, PO2 93 bicarbonate of 31. She was placed on BiPAP and pH improved to 7.3 and PCO2 52. She was then transferred to [facility] for further treatment. Patient has been doing well, able to come off BIPAP, on 3 l NC ( home O2 level) , she has been up to chair and walking in the room, she feels that kshe is at the bsaseline. discharge home with 5 days of lebaquin, then contineu her home azithromycin, taper prednisone for 12 days. Discharge discussed with: patient Time spent discussing smoking cessation with patient: 3 to 10 minutes - Time Spent with Patient Total time spent providing and/or coordinating discharge services: Less than 30 minutes - Discharge Medications Prescriptions: levoFLOXacin [Levaquin] 500 mg PO DAILY 5 Days #5 tablet predniSONE [PredniSONE] 10 mg PO DAILY 12 Days #30 tablet Home Medications: Albuterol Sulfate [Ventolin Hfa] 2 puff IH Q4H PRN 04/20/17 [History] Aspirin [Lo-Dose Aspirin EC] 81 mg PO DAILY 04/20/17 [History] Escitalopram [Lexapro] 20 mg PO DAILY 04/20/17 [History] Metoprolol [Lopressor] 25 mg PO BID 04/20/17 [History] Tiotropium Br/Olodaterol HCl [Stiolto Respimat Inhal [place]] 2 puff IH DAILY [History] Atorvastatin Calcium [Lipitor] 20 mg PO HS 10/30/17 [History] Buspirone HCl [Buspar] 7.5 mg PO BID 10/30/17 [History] Ipratropium/Albuterol Neb [Duoneb] 3 ml IH TID PRN 10/30/17 [History] Roflumilast [Daliresp] 500 mcg PO DAILY 10/30/17 [History] Azithromycin [Zithromax] 250 mg PO MOWEFR 11/25/17 [History] levoFLOXacin [Levaquin] 500 mg PO DAILY 5 Days #5 tablet 11/28/17 [Rx] predniSONE [PredniSONE] 10 mg PO DAILY 12 Days #30 tablet 11/28/17 [Rx] Allergies/Adverse Reactions: 3 Allergy/AdvReac Type Severity Reaction Status Date / Time No Known Allergies Allergy Verified 10/30/17 10:09 Date of admission: 11/25/17 04:06 Primary care physician: Tuyet Fisher CNP Anticipated date of discharge: 11/28/17 - Constitutional Vitals: Temp Pulse Resp BP Pulse Ox 97.6 F 83 17 126/78 98 11/28/17 07:11 11/28/17 07:11 11/28/17 07:28 11/28/17 07:11 11/28/17 07:28 General appearance: Present: cooperative, A&O X 3, pleasant Exam: CONSTITUTIONAL: patient appears as an age appropriate female in no acute distress. EYES Clear sclerae, bilateral pupils are equal, reactive to light. EMOI. RESPIRATORY: No accessory muscle use, bilateral diminished BS to auscultation, no wheezing, no crackles/rales. CARDIOVASCULAR: Regular heart rate, normal S1 and S2, no murmurs GASTROINTESTINAL: bowel sounds present, soft, no tenderness. MUSCULOSKELETAL: Joints in normal range of motion, no clubbing, no edema, no cyanosis. Bilateral peripheral pulses 2+. NEUROLOGIC: CN II to XII are grossly intact, no focal neurological deficit. - Patient Status Disposition: Home, Self-Care Condition: Good Functional capacity at discharge: independent ambulation Overall status at discharge: patient is back to baseline - Discharge Instructions Follow Up With: Tuyet Fisher CNP [Primary Care Provider] - - Diet and Activity Activity: wear oxygen at all times Diet: advance to your usual diet
[2017-11-28 11:05] VITALS: BP 112/67
== END 2017-11-28 12:20 | disposition home or self-care (01) ==
LOC: 2ANU → SUATTDRO 04:06
PROVIDERS: ADMIT Internal Medicine; ATTEND Hospitalist

== ENCOUNTER 2018-03-26 01:30 | Observation (INO) ==
[2018-03-26] MEDS: Ipratropium/Albuterol Neb 3 ML IH SCH ×4 (11:03→23:32)
--- NOTE | 2018-03-26 12:29 | Internal Med History&Physical ---
Date of Encounter: 03/26/18 Time of Encounter: 12:28 Internal Medicine - H&P: HPI Chief complaint: dyspnea Admitted From: Intrahospital Transfer Plans for Post Hospital Care: Home History of present illness: 62 year old woman with COPD, asthma, leg swelling (on Lasix, no HF), tachycardia (on metoprolol) was diagnosed with influenza on 03/24/18 at [facility] and discharged with a course of Oseltamivir. She returned with increasing dyspnea and cough with small amount of phlegm associated with chills, headache, dizziness, body aches, palpitations, pins and needle sensation in chest with coughing, nausea, one episode of vomiting, generalized weakness and mild sore throat. CTA was negative for PE., but showed RML consolidation. She received IV vancomycin, Zosyn, Solumdrol, Duonebs and was transferred for further manage ment. A 10-point ROS is otherwise negative for abd pain, diarrhea, constipation, dysuria, focal deficits or dysarthria or other symptoms unless mentioned elsewhere in this document. # AECOPD # HCAP, RML # Influenza, type unknown # Active tobacco use; 0.25 PPD, counseled - WBC 10k; Hb 10.2; troponin undetectable, NT proBNP of 1400 - cont IV vancomycin, IV Zosyn - cont oral oseltamivir - Duonebs chelsi and prn albuterol nebs - Cont Solumedrol - check VBG, lactate - check blood cultures - check urine antigens - check sputum culture if able - considering underlying pulm disease with influenza and worsening after initial improvement, will request ID consult tomorrow - will check echocardiogram to assess cardiac function # Hx tachycardia, NOS - resume half the dose of home metoprolol to prevent rebound tachycardia and hypotension # Hx leg swelling - Hold Lasix until there is no concern for septic shock # VTE prophy enoxaparin SubQ Past Med Surg Social Fam HX - Past Medical History Medical history: asthma, COPD, migraine Psychiatric history: depression - Past Surgical History Additional surgical history: TUBAL LIGATION - Social History Smoking Status: Current every day smoker Smokeless Tobacco Status: No Alcohol use: none Drug use: none - Family History Mother Adopted: No Family Member Ethnicity: Non- Twin of Family Member: Yes Living Status: Age at : 89 Hx Family Cardiac Disorders: No Hx Family Respiratory Disorders: Yes (Asthma) Hx Family Cancer: No Hx Family GI Disorders: No Hx Family Genitourinary Disorders: No Hx Family Endocrine Disorder: No Hx Family Musculoskeletal Disorders: No Hx Family Neuromuscular Disorders: No Hx Family Neurologic Disorders: No Hx Family HEENT Disorders: No Hx Family Autoimmune Disorders: No Hx Family Reproductive Disorders: No Hx Family Psychosocial Disorders: No Hx Family Medical Disorders: No Internal Medicine - H&P: Meds Albuterol Sulfate [Ventolin Hfa] 2 puff IH Q4H PRN 04/20/17 [History] Aspirin [Lo-Dose Aspirin EC] 81 mg PO DAILY 04/20/17 [History] Metoprolol [Lopressor] 25 mg PO BID 04/20/17 [History] Tiotropium Br/Olodaterol HCl [Stiolto Respimat Inhal [place]] 2 puff IH DAILY 04/20/17 [History] Atorvastatin Calcium [Lipitor] 20 mg PO HS 10/30/17 [History] Buspirone HCl [Buspar] 15 mg PO BID 10/30/17 [History] Ipratropium/Albuterol Neb [Duoneb] 3 ml IH TID PRN 10/30/17 [History] Roflumilast [Daliresp] 500 mcg PO DAILY 10/30/17 [History] FLUoxetine HCl [Fluoxetine HCl] 40 mg PO DAILY 03/26/18 [History] Fluticasone Furoate [Arnuity Ellipta] 1 puff IH DAILY 03/26/18 [History] Nicotine Patch [Nicoderm] 21 mg TP DAILY 03/26/18 [History] Oseltamivir Phosphate 75 mg PO BID 03/26/18 [History] Allergy/AdvReac Type Severity Reaction Status Date / Time Varenicline [From Chantix] Allergy Vomiting Verified 03/26/18 04:37 All Systems PM: A 10-system review of systems was performed and is negative for pertinent findings except as documented above in the HPI. - Constitutional Vitals: Temp Pulse Resp BP Pulse Ox 97.8 F 108 17 118/70 93 03/26/18 10:47 03/26/18 10:47 03/26/18 10:47 03/26/18 10:47 03/26/18 10:47 General appearance: Present: A&O X 3, no acute distress Exam: as noted - Head Head exam: Present: atraumatic, normal inspection - Eye Eye exam: Present: PERRL. Absent: conjunctival injection, scleral icterus - ENT ENT exam: Present: mucous membranes moist Additional comments: mild posterior pharyngeal wall erythema and injection, no crowding or swelling - Neck Neck exam general surgery: Present: supple. Absent: nuchal rigidity - Respiratory Respiratory exam: Present: decreased breath sounds (diffuse), prolonged expiratory phase, rhonchi, wheezes (diffuse mild). Absent: accessory muscle use, chest wall tenderness, rales, respiratory distress, stridor, tachypnea - Cardiovascular Cardiovascular exam: Present: RRR, +S1, +S2. Absent: gallop, rubs, systolic murmur - GI/Abdominal GI/Abdominal exam: Present: soft. Absent: guarding, rebound, rigid - Extremities Exam Extremities exam: Present: normal inspection, warm. Absent: pedal edema, tenderness - Neurological Exam Neurological exam: Present: oriented X3, no focal deficits. Absent: facial droop, speech deficit - Psychiatric Psychiatric exam: Present: normal affect, normal mood - Skin Skin exam: Absent: cyanosis Internal Med - H&P Results - Labs CBC & Chem 7: 03/26/18 15:18 - Assessment and plan (1) HCAP (healthcare-associated pneumonia) Current Visit: Yes Status: Acute (2) Acute respiratory failure with hypoxia and hypercapnia Current Visit: No Status: Resolved (3) COPD exacerbation Current Visit: No Status: Resolved (4) DVT prophylaxis Current Visit: No Status: Resolved - Time Spent With Patient Total time spent is greater than 50% in coordination of care (as documented) at patient's floor/unit and/or counseling patient:
[2018-03-26] MEDS ORDERED: Vancomycin 500 MG in 0.9 % Sodium Chloride 250 ML IVPB SCH (13:00)
[2018-03-26] MEDS ORDERED: Vancomycin 1 EACH in EMPTY BAG 1 EACH IVPB SCH (13:00)
[2018-03-26 15:29] LABS: VBG HCO3 24 mEq/L (21-27); VBG PCO2 28 mmHg (41-51); VBG PH 7.54 pH Units (7.32-7.42); VBG PO2 149 mmHg (25-50)
[2018-03-26] MEDS: MethylPREDNISolone 40 MG/ML VIAL IVP SCH ×3 (15:43→23:29)
[2018-03-26] MEDS: Piperacillin/Tazobactam 3.375 GM in 0.9 % Sodium Chloride Mini Bag 100 ML IVPB SCH ×3 (15:43→23:29)
[2018-03-26] MEDS: Aspirin Enteric Coated 81 MG Tablet PO SCH (15:46)
[2018-03-26 15:48] LABS: BUN/Creatinine Ratio 35 (6-26); Blood Urea Nitrogen 13 mg/dL (8-23); eGFR For Non-African Americans > 60 (> 60)
[2018-03-27] MEDS: Ipratropium/Albuterol Neb 3 ML IH SCH ×6 (03:55→23:21)
[2018-03-27 04:57] LABS: Basophils % 0.2 %; Hematocrit 27.7 % (35.3-44.9); Hemoglobin 9.1 g/dL (11.5-15.4); Immature Granulocytes % 1.3 % (0-4); Lymphocytes # 0.5 K/mcL (0.6-4.6); Mean Corpuscular HGB Conc 32.9 g/dL (31.6-35.5); Mean Corpuscular Hemoglobin 26.5 pg (28.0-33.3); Mean Corpuscular Volume 80.8 fL (83.0-100.0); Mean Platelet Volume 9.2 fL (9.4-12.4); Monocytes # 0.1 K/mcL (0.0-1.3); Monocytes % 2.3 %; Neutrophils # 5.5 K/mcL (1.6-8.9); Platelet Count 237 K/mcL (140-400); Red Blood Count 3.43 M/mcL (3.82-4.97); Red Cell Distribution Width 14.2 % (11.5-14.5); Segmented Neutrophils % 88.2 %
[2018-03-27 05:17] LABS: Alanine Aminotransferase 25 Units/L (7-52); Albumin 3.1 g/dL (3.5-5.7); Albumin/Globulin Ratio 1.6 (1.1-2.2); Alkaline Phosphatase 57 Units/L (34-104); Aspartate Amino Transferase 19 Units/L (13-39); BUN/Creatinine Ratio 38 (6-26); Bilirubin,Total 0.4 mg/dL (0.3-1.0); Blood Urea Nitrogen 12 mg/dL (8-23); Calcium 8.2 mg/dL (8.6-10.3); Carbon Dioxide 24 mEq/L (23-29); Chloride 99 mEq/L (98-107); Globulin 1.9 g/dL (2.4-3.5); Glucose 155 mg/dL (70-105); Osmolality,Calculated 281 (280-300); Sodium 134 mEq/L (136-145); eGFR For Non-African Americans > 60 (> 60)
[2018-03-27 05:19] LABS: Platelet Estimate Normal (Normal); Reactive Lymphocytes Present (Not Present)
[2018-03-27] MEDS: *HR* Enoxaparin 40 MG/0.4 ML SYRINGE SQ SCH (06:35)
[2018-03-27] MEDS: MethylPREDNISolone 40 MG/ML VIAL IVP SCH ×4 (06:35→23:46)
[2018-03-27] MEDS: Aspirin Enteric Coated 81 MG Tablet PO SCH (09:19)
[2018-03-27] MEDS: Nicotine 7 MG PATCH.TD24 TD SCH (09:19)
[2018-03-27] MEDS: Piperacillin/Tazobactam 3.375 GM in 0.9 % Sodium Chloride Mini Bag 100 ML IVPB SCH (09:19)
--- NOTE | 2018-03-27 09:36 | Internal Med Progress Note ---
<Nemesio Manzano - Last Filed: 03/27/18 16:49> Hospitalist Progress Note - Encounter Date of Encounter: 03/27/18 - Exam Vitals: Temp Pulse Resp BP Pulse Ox 98.1 F 106 19 117/64 95 03/27/18 16:00 03/27/18 16:00 03/27/18 16:00 03/27/18 16:00 03/27/18 16:00 - Assessment and Plan (1) COPD exacerbation Current Visit: No Status: Acute (2) HTN (hypertension), benign Current Visit: No Status: Chronic (3) Pneumonia and influenza Current Visit: Yes Status: Suspected (4) Tobacco abuse Current Visit: Yes Status: Chronic - Time Spent with Patient Total time spent is greater than 50% in coordination of care (as documented) at patient's floor/unit and/or counseling patient: Internal Medicine: Result - Labs CBC & Chem 7: 03/27/18 04:28 03/27/18 04:28 Labs: Short CBC 03/27/18 Range/Units 04:28 WBC 6.2 (4.3-11.1) K/mcL Hgb 9.1 L (11.5-15.4) g/dL Hct 27.7 L (35.3-44.9) % Plt Count 237 (140-400) K/mcL Neutrophils # 5.5 (1.6-8.9) K/mcL BMP 03/27/18 04:28 Sodium 134 L Potassium 3.0 L Chloride 99 Carbon Dioxide 24 BUN 12 Creatinine 0.32 L Glucose 155 H Calcium 8.2 L Liver Function 03/27/18 Range/Units 04:28 Total Bilirubin 0.4 (0.3-1.0) mg/dL AST 19 (13-39) Units/L ALT 25 (7-52) Units/L Alkaline Phosphatase 57 (34-104) Units/L Albumin 3.1 L (3.5-5.7) g/dL - Impressions Impressions Echocardiogram 03/27/18 12:25 Impressions: LVEF 60-65%. Normal LV chamber size, wall thickness and function. Normal right ventricular structure and function. Mild tricuspid regurgitation. Mild pulmonary hypertension. Left Ventricular Wall Motion: Rest Echo Findings All wall segments showed normal motion. Findings: Study Quality * Technically adequate exam. ECG Findings * Sinus tachycardia. Left Ventricle * LVEF 60-65%. * Normal LV chamber size, wall thickness and function. * Normal left ventricular diastolic function. Right Ventricle * Normal right ventricular structure and function. Left Atrium * Mildly dilated left atrium. Right Atrium * Normal right atrial size. Interatrial Septum * Interatrial septum not well evaluated. * No evidence of PFO by color Doppler. Aortic Valve * Trileaflet aortic valve with normal function. * No aortic stenosis. * No aortic regurgitation. Mitral Valve * Normal mitral valve structure. * No mitral stenosis. * Trace mitral regurgitation. Tricuspid Valve * Normal tricuspid valve structure. * No tricuspid stenosis. * Mild tricuspid regurgitation. * Estimated RVSP is 39 mmHg. * Estimated RA pressure is 8 mmHg. * Mild pulmonary hypertension. Pulmonic Valve * Pulmonic valve is not well visualized. * No pulmonic stenosis. * No pulmonic regurgitation. Aorta * Normally sized aortic root. Pericardium * The pericardium appears normal. IVC * The IVC is dilated. * > 50% respiratory change Consult Discharge Plan - Plan Referrals: Tuyet Fisher [employer] FURNACE OPERATOR [Primary Care Provider] - - Attending Attestation I examined this patient and my medical decision-making was reviewed with the Resident Physician on 03/27/18. I agree with the documented findings, dispos ition and treatment plan as described except to the extent set forth below. Ms Knight is currently admitted for acute influenza and pneumonia. She remains moderate to high risk due to potential for worsening clinical status. Ms Knight is beginning to feels a little better. She is less dyspneic. No fever or chills at this time. Still with productive cough. No GI issues. Exam alert comfortable at rest Mucus membranes dry Heart reg and not tachy Diffuse rhonchi heard Abd soft and nontender No edema I/P 1. Acute exac COPD - steroids, abx, aerosols and oxygen 2. RML pneumonia on IV abx. Change to community acquired. 3. Acute influenza- complete Tamiflu 4. Tobacco abuse Further diagnoses and plan as above. <Osvaldo Ng - Last Filed: 03/27/18 18:17> Hospitalist Progress Note - Encounter Date of Encounter: 03/27/18 Time of Encounter: 09:32 - Subjective Interval History: Patient is a 62-year-old female presenting to [facility] due to dyspnea. Patient was diagnosed with influenza at [facility] on 03/24 and given Oseltamivir. Patient continued to experience worsening dyspnea and presented to [facility] ED where she was found to have a right middle lobe consolidation on CTA imaging. Upon initial examination patient sitting upright in hospital bed on oxygen by nasal cannula. Patient is awake, alert and oriented, pleasant, engaged conversation, answers questions appropriately. No acute distress and there are no focal neurological defects. Patient admits to continued shortness of breath, productive cough, and nausea associated with coughing, and "hot flashes", but denies fever/chills, headache, vision change, tinnitus, neck or back pain, chest pain/shortness of breath, abdominal pain/vomiting, diarrhea/constipation, hematuria/Hematochezia, weakness or paresthesias. - Exam Vitals: Temp Pulse Resp BP Pulse Ox 98.1 F 106 18 123/73 96 03/27/18 07:34 03/27/18 07:34 03/27/18 07:41 03/27/18 07:34 03/27/18 07:41 Exam: Constitutional: As per history of present illness Cardiovascular rhythm regular, no murmurs gallops or rubs appreciated. Respiratory clear to auscultation bilaterally, no stridor, wheezes, rhonchi, or crackles appreciated. Abdomen: Abdomen is soft, scaphoid, nontender nondistended Skin: No rashes, bruising, or bleeding appreciated. - Summary of Assessment and Plan Summary of Assessment and Plan: # AECOPD # HCAP, RML # Influenza, type unknown # Active tobacco use; 0.25 PPD, counseled - WBC 6.2 - down from 10k; - Hb 9.1 down from 10.2; - troponin undetectable, NT proBNP of 1400 at OSH - STOP IV vancomycin, IV Zosyn - Begin Rocephin + Zithromax - CONTINUE oral oseltamivir for 5 TOTAL days (day #4) - Duonebs chelsi and prn albuterol nebs - Cont Solumedrol - VBG shows mild respiratory alkylosis, - Lactate WNL - Blood cultures/urine antigens PENDING - Sputum culture PENDING - considering underlying pulm disease with influenza and worsening after initial improvement - Echocardiogram PENDING #Hypokalemia - Replace K+ - Mag level qAM # Hx tachycardia, NOS - resume half the dose of home metoprolol to prevent rebound tachycardia and hypotension # Hx leg swelling - Hold Lasix until there is no concern for septic shock # VTE prophy enoxaparin SubQ - Time Spent with Patient Total time spent is greater than 50% in coordination of care (as documented) at patient's floor/unit and/or counseling patient: Internal Medicine: Result - Labs CBC & Chem 7: 03/27/18 04:28 03/27/18 04:28 Labs: Short CBC 03/27/18 Range/Units 04:28 WBC 6.2 (4.3-11.1) K/mcL Hgb 9.1 L (11.5-15.4) g/dL Hct 27.7 L (35.3-44.9) % Plt Count 237 (140-400) K/mcL Neutrophils # 5.5 (1.6-8.9) K/mcL BMP 03/26/18 03/27/18 15:18 04:28 Sodium 134 L Potassium 3.0 L Chloride 99 Carbon Dioxide 24 BUN 13 12 Creatinine 0.37 L 0.32 L Glucose 155 H Calcium 8.2 L Cardiac Enzymes 03/26/18 Range/Units 15:18 Troponin I < 0.03 (< 0.04) ng/mL Liver Function 03/27/18 Range/Units 04:28 Total Bilirubin 0.4 (0.3-1.0) mg/dL AST 19 (13-39) Units/L ALT 25 (7-52) Units/L Alkaline Phosphatase 57 (34-104) Units/L Albumin 3.1 L (3.5-5.7) g/dL
[2018-03-27] MEDS ORDERED: Aminoglycoside Consult 1 EACH MC ONE (10:38)
[2018-03-27] MEDS: cefTRIAXone 2,000 MG in Water for inj. (sterile) 20 ML 20 ML IVP SCH (17:34)
[2018-03-27] MEDS: Azithromycin 500 MG in D5% in Water 250 ML IVPB SCH (17:35)
[2018-03-27] MEDS: MOMETASONE FUROATE 100 mcg Inhaler IH SCH (19:47)
[2018-03-28] MEDS: Ipratropium/Albuterol Neb 3 ML IH SCH ×6 (03:24→23:08)
[2018-03-28] MEDS: MethylPREDNISolone 40 MG/ML VIAL IVP SCH ×3 (05:32→17:39)
[2018-03-28] MEDS: *HR* Enoxaparin 40 MG/0.4 ML SYRINGE SQ SCH (05:32)
[2018-03-28 07:08] LABS: Basophils % 0.5 %; Hematocrit 25.8 % (35.3-44.9); Hemoglobin 8.4 g/dL (11.5-15.4); Lymphocytes # 0.5 K/mcL (0.6-4.6); Lymphocytes % 7.3 %; Mean Corpuscular HGB Conc 32.6 g/dL (31.6-35.5); Mean Corpuscular Hemoglobin 25.8 pg (28.0-33.3); Mean Corpuscular Volume 79.1 fL (83.0-100.0); Monocytes # 0.2 K/mcL (0.0-1.3); Monocytes % 3.2 %; Neutrophils # 6.3 K/mcL (1.6-8.9); Platelet Count 253 K/mcL (140-400); Red Blood Count 3.26 M/mcL (3.82-4.97)
[2018-03-28 07:16] LABS: VBG HCO3 27 mEq/L (21-27); VBG PCO2 39 mmHg (41-51); VBG PH 7.45 pH Units (7.32-7.42); VBG PO2 116 mmHg (25-50)
[2018-03-28 07:28] LABS: Alanine Aminotransferase 33 Units/L (7-52); Albumin/Globulin Ratio 1.4 (1.1-2.2); Alkaline Phosphatase 65 Units/L (34-104); Aspartate Amino Transferase 27 Units/L (13-39); BUN/Creatinine Ratio 35 (6-26); Bilirubin,Total 0.3 mg/dL (0.3-1.0); Blood Urea Nitrogen 13 mg/dL (8-23); Calcium 8.3 mg/dL (8.6-10.3); Carbon Dioxide 25 mEq/L (23-29); Chloride 99 mEq/L (98-107); Globulin 2.1 g/dL (2.4-3.5); Glucose 145 mg/dL (70-105); Magnesium 1.9 mg/dL (1.6-2.6); Osmolality,Calculated 277 (280-300); Potassium 3.5 mEq/L (3.5-5.1); Sodium 132 mEq/L (136-145); Total Protein 5.1 g/dL (6.4-8.9); eGFR For Non-African Americans > 60 (> 60)
[2018-03-28] MEDS: MOMETASONE FUROATE 100 mcg Inhaler IH SCH ×2 (07:29→19:51)
[2018-03-28] MEDS: FLUoxetine 20 MG CAPSULE PO SCH (08:35)
[2018-03-28] MEDS: Aspirin Enteric Coated 81 MG Tablet PO SCH (08:36)
[2018-03-28] MEDS: Nicotine 7 MG PATCH.TD24 TD SCH (08:36)
--- NOTE | 2018-03-28 08:50 | Internal Med Progress Note ---
<Osvaldo Ng - Last Filed: 03/28/18 15:36> Hospitalist Progress Note - Encounter Date of Encounter: 03/28/18 Time of Encounter: 15:36 - Subjective Interval History: Patient is a 62-year-old female presenting to [facility] due to dyspnea. Patient was diagnosed with influenza at [facility] on 05/25 and given Oseltamivir. Patient continued to experience worsening dyspnea and presented to [facility] ED where she was found to have a right middle lobe consolidation on CTA imaging. Upon initial examination patient sitting upright in hospital bed on oxygen by nasal cannula. Patient is awake, alert and oriented, pleasant, engaged to conversation, answers questions appropriately. No acute distress and there are no focal neurological defects. Patient admits to continued shortness of breath with non-productive cough, but denies headache, vision change, tinnitus, neck or back pain, chest pain/shortness of breath, nausea/abdominal pain/vomiting, diarrhea/constipation, hematuria/Hematochezia, weakness or paresthesias, or difficulty with ambulation. Patient states that she has been ambulating to the restroom unassisted without difficulty. - Exam Vitals: Temp Pulse Resp BP Pulse Ox 97.9 F 97 16 127/81 94 03/28/18 06:55 03/28/18 06:55 03/28/18 07:29 03/28/18 06:55 03/28/18 07:29 Exam: Constitutional: Awake, alert, engaged to conversation, pleasant, answers questions appropriately, in no acute distress, Cardiovascular rhythm regular, no murmurs gallops or rubs appreciated. Respiratory clear to auscultation bilaterally, no stridor, wheezes, rhonchi, or crackles appreciated. Abdomen: Abdomen is soft, scaphoid, nontender, nondistended Skin: No rashes, bruising, edema, or bleeding appreciated. - Assessment and Plan (1) Pneumonia and influenza Current Visit: Yes Status: Suspected Assessment and Plan: CTA chest showed RML PNA at OSH Patient intitally started on Vancomycin and Zosyn prior to transfer to [facility] Antibiotic coverage de-escalated to Azithromycin/Rocephin on 03/27/18 Blood, Urine, Sputum cultures still PENDING Patient diagnosed with influenza on 03/24 at OSH Started on Oseltamavir (currently day 5 of 5) (2) COPD exacerbation Current Visit: No Status: Acute Assessment and Plan: Azithromycin + Rocephin for RML pneumonia with concomitant COPD exacerbation Continue Scheduled DuoNebs, Steriod inhaler, Solu-Medrol Albuterol PRN (3) Hypokalemia Current Visit: Yes Status: Resolved Assessment and Plan: Potassium 3.0 on 03/27/2018. 40mEq given PO. Repeat Potassium level at 3.5 this morning - will give another 40mEq dose today and recheck BMP tomorrow Magnesium level WNL at 1.9 (4) Tobacco abuse Current Visit: Yes Status: Chronic Assessment and Plan: Nicotine patch 7mg TD daily provided while in hospital (5) DVT prophylaxis Current Visit: No Status: Resolved Assessment and Plan: Lovenox 40mg SQ QAM DVT Prophylaxis: Lovenox 40mg SQ QAM - Time Spent with Patient Total time spent is greater than 50% in coordination of care (as documented) at patient's floor/unit and/or counseling patient: Internal Medicine: Result - Labs CBC & Chem 7: 03/28/18 06:49 03/28/18 06:49 Labs: Short CBC 03/28/18 Range/Units 06:49 WBC 7.4 (4.3-11.1) K/mcL Hgb 8.4 L (11.5-15.4) g/dL Hct 25.8 L (35.3-44.9) % Plt Count 253 (140-400) K/mcL Neutrophils # 6.3 (1.6-8.9) K/mcL BMP 03/28/18 06:49 Sodium 132 L Potassium 3.5 Chloride 99 Carbon Dioxide 25 BUN 13 Creatinine 0.37 L Glucose 145 H Calcium 8.3 L Liver Function 03/28/18 Range/Units 06:49 Total Bilirubin 0.3 (0.3-1.0) mg/dL AST 27 (13-39) Units/L ALT 33 (7-52) Units/L Alkaline Phosphatase 65 (34-104) Units/L Albumin 3.0 L (3.5-5.7) g/dL - Impressions Impressions Echocardiogram 03/27/18 12:25 Impressions: LVEF 60-65%. Normal LV chamber size, wall thickness and function. Normal right ventricular structure and function. Mild tricuspid regurgitation. Mild pulmonary hypertension. Left Ventricular Wall Motion: Rest Echo Findings All wall segments showed normal motion. Findings: Study Quality * Technically adequate exam. ECG Findings * Sinus tachycardia. Left Ventricle * LVEF 60-65%. * Normal LV chamber size, wall thickness and function. * Normal left ventricular diastolic function. Right Ventricle * Normal right ventricular structure and function. Left Atrium * Mildly dilated left atrium. Right Atrium * Normal right atrial size. Interatrial Septum * Interatrial septum not well evaluated. * No evidence of PFO by color Doppler. Aortic Valve * Trileaflet aortic valve with normal function. * No aortic stenosis. * No aortic regurgitation. Mitral Valve * Normal mitral valve structure. * No mitral stenosis. * Trace mitral regurgitation. Tricuspid Valve * Normal tricuspid valve structure. * No tricuspid stenosis. * Mild tricuspid regurgitation. * Estimated RVSP is 39 mmHg. * Estimated RA pressure is 8 mmHg. * Mild pulmonary hypertension. Pulmonic Valve * Pulmonic valve is not well visualized. * No pulmonic stenosis. * No pulmonic regurgitation. Aorta * Normally sized aortic root. Pericardium * The pericardium appears normal. IVC * The IVC is dilated. * > 50% respiratory change Consult Discharge Plan - Plan Referrals: Tuyet Fisher, [facility] [Primary Care Provider] - <Nemesio Manzano - Last Filed: 03/28/18 16:37> Hospitalist Progress Note - Encounter Date of Encounter: 03/28/18 - Exam Vitals: Temp Pulse Resp BP Pulse Ox 98.1 F 92 16 136/82 95 03/28/18 16:05 03/28/18 16:05 03/28/18 16:08 03/28/18 16:05 03/28/18 16:08 - Assessment and Plan (1) COPD exacerbation Current Visit: No Status: Acute (2) HTN (hypertension), benign Current Visit: No Status: Chronic (3) Pneumonia and influenza Current Visit: Yes Status: Suspected (4) Tobacco abuse Current Visit: Yes Status: Chronic - Time Spent with Patient Total time spent is greater than 50% in coordination of care (as documented) at patient's floor/unit and/or counseling patient: Internal Medicine: Result - Labs CBC & Chem 7: 03/28/18 06:49 03/28/18 06:49 Labs: Short CBC 03/28/18 Range/Units 06:49 WBC 7.4 (4.3-11.1) K/mcL Hgb 8.4 L (11.5-15.4) g/dL Hct 25.8 L (35.3-44.9) % Plt Count 253 (140-400) K/mcL Neutrophils # 6.3 (1.6-8.9) K/mcL BMP 03/28/18 06:49 Sodium 132 L Potassium 3.5 Chloride 99 Carbon Dioxide 25 BUN 13 Creatinine 0.37 L Glucose 145 H Calcium 8.3 L Liver Function 03/28/18 Range/Units 06:49 Total Bilirubin 0.3 (0.3-1.0) mg/dL AST 27 (13-39) Units/L ALT 33 (7-52) Units/L Alkaline Phosphatase 65 (34-104) Units/L Albumin 3.0 L (3.5-5.7) g/dL - Attending Attestation I examined this patient and my medical decision-making was reviewed with the Resident Physician on 03/28/18. I agree with the documented findings, disposition and treatment plan as described except to the extent set forth below. Ms Knight is currently admitted for pneumonia and resolving influenza with COPD exacerbation. She remains moderate to high risk due to potential for worsening clinical status. Ms Knight is continuing to slowly improve. She has a lot of secretions and can't mobilize well. No fever or chills. No CP. No GI issues. Exam alert Comfortable at rest Mucus membranes dry Heart reg and not tachy No wheeze at this time. Abd soft and nontender No edema I/P 1. Acute influenza - completing tamiflu 2. Pneumonia - continues on Ceftriaxone and azithromycin 3. COPD exac - decrease steroids today. Add mucolytic 4. Smoker Further diagnoses and plan as above.
[2018-03-28] MEDS ORDERED: cefTRIAXone 2,000 MG in Water for inj. (sterile) 20 ML 20 ML IVP SCH (09:00)
[2018-03-28] MEDS ORDERED: NON-FORMULARY MEDICATION 1 EACH EACH (Tiotropium Br/Olodaterol Hcl [Stiolto Respimat Inhal IH SCH (09:00)
[2018-03-28] MEDS ORDERED: NON-FORMULARY MEDICATION 1 EACH EACH (Roflumilast [Daliresp] 500 MCG) PO SCH (09:00)
[2018-03-28] MEDS ORDERED: Azithromycin 500 MG in D5% in Water 250 ML IVPB SCH (11:00)
[2018-03-28] MEDS ORDERED: GuaiFENesin Liq 200 MG/10 ML UDC PO PRN (11:15)
[2018-03-28] MEDS: cefTRIAXone 2,000 MG in Water for inj. (sterile) 20 ML 20 ML IVP SCH (15:41)
[2018-03-28] MEDS: Azithromycin 500 MG in D5% in Water 250 ML IVPB SCH (15:42)
[2018-03-29] MEDS: Ipratropium/Albuterol Neb 3 ML IH SCH ×3 (04:09→11:30)
[2018-03-29] MEDS: MethylPREDNISolone 40 MG/ML VIAL IVP SCH ×2 (05:46)
[2018-03-29] MEDS: *HR* Enoxaparin 40 MG/0.4 ML SYRINGE SQ SCH (05:46)
[2018-03-29 06:24] LABS: Hematocrit 25.8 % (35.3-44.9); Hemoglobin 8.6 g/dL (11.5-15.4); Mean Corpuscular HGB Conc 33.3 g/dL (31.6-35.5); Mean Corpuscular Hemoglobin 26.3 pg (28.0-33.3); Mean Corpuscular Volume 78.9 fL (83.0-100.0); Mean Platelet Volume 9.3 fL (9.4-12.4); Platelet Count 278 K/mcL (140-400); Red Blood Count 3.27 M/mcL (3.82-4.97); Red Cell Distribution Width 14.1 % (11.5-14.5)
[2018-03-29 06:35] LABS: Alanine Aminotransferase 34 Units/L (7-52); Albumin 3.1 g/dL (3.5-5.7); Albumin/Globulin Ratio 1.7 (1.1-2.2); Alkaline Phosphatase 67 Units/L (34-104); Aspartate Amino Transferase 26 Units/L (13-39); BUN/Creatinine Ratio 32 (6-26); Bilirubin,Total 0.3 mg/dL (0.3-1.0); Blood Urea Nitrogen 12 mg/dL (8-23); Calcium 8.4 mg/dL (8.6-10.3); Carbon Dioxide 27 mEq/L (23-29); Chloride 100 mEq/L (98-107); Globulin 1.8 g/dL (2.4-3.5); Glucose 150 mg/dL (70-105); Osmolality,Calculated 277 (280-300); Potassium 3.8 mEq/L (3.5-5.1); Sodium 132 mEq/L (136-145); Total Protein 4.9 g/dL (6.4-8.9); eGFR For Non-African Americans > 60 (> 60)
[2018-03-29 06:59] LABS: Lymphocytes # 0.3 K/mcL (0.6-4.6); Monocytes # 0.3 K/mcL (0.0-1.3); Neutrophils # 6.9 K/mcL (1.6-8.9); Platelet Estimate Normal (Normal)
[2018-03-29 07:00] LABS: Poikilocytosis 1+ (Not Present)
[2018-03-29] MEDS: MOMETASONE FUROATE 100 mcg Inhaler IH SCH (07:28)
[2018-03-29] MEDS: FLUoxetine 20 MG CAPSULE PO SCH (08:14)
[2018-03-29] MEDS: Aspirin Enteric Coated 81 MG Tablet PO SCH (08:15)
[2018-03-29] MEDS: Nicotine 7 MG PATCH.TD24 TD SCH (08:15)
[2018-03-29] MEDS ORDERED: Azithromycin 250 MG TABLET PO SCH (09:00)
[2018-03-29 11:04] VITALS: BP 138/78
[2018-03-29] MEDS ORDERED: predniSONE 20 MG TABLET PO SCH (11:15)
--- NOTE | 2018-03-29 11:36 | Discharge Summary ---
<Osvaldo Ng - Last Filed: 03/29/18 14:34> - NOTES TO OUTPATIENT PROVIDER Notes to Outpatient Provider: Patient should receive follow up CXR in 4-6 weeks to determine resolution of RML penumonia. Orders not resulted at time of discharge: Pending orders 03/28/18 15:00 Culture,Sputum with Gram Stain [RM] Routine 03/26/18 12:14 Legionella Antigen [RM] Routine S. Pneumoniae Antigen [RM] Routine ECG 12 lead ECG [ECG] Routine 03/26/18 14:59 Culture,Blood [BC] Routine 03/26/18 17:03 ECG 12 lead ECG [ECG] Stat Date of Encounter: 03/29/18 Time of Encounter: 11:34 - Discharge Diagnosis (1) Pneumonia and influenza Priority: Primary Status: Acute (2) COPD exacerbation Priority: Primary Status: Acute (3) Hypokalemia Priority: Primary Status: Resolved (4) Tobacco abuse Priority: Secondary Status: Chronic Hospital course: Ms. Knight is a 62 year old female admitted to [facility] due to dyspnea. Patient was diagnosed with influenza at [facility] on 03/24 and given Oseltamivir. Patient continued to experience worsening dyspnea and returned to ED on 03/26 where she was found to have a right middle lobe consolidation on CTA imaging. Patient was treated for influenza with 5 days of Oseltamivir, and was given azithromycin 500 mg and Rocephin 2 g for 3 days each for the treatment of pneumonia. Patient was given Solu-Medrol 40 units every 6 hours beginning on 03/26/18 with taper to 20 units every 6 hours on 03/28/18. Patient was transitioned to prednisone 40 mg by mouth daily on 03/29/18 and will be discharged home with 3 days worth of prednisone. Patient is hemodynamically stable at time of discharge with vitals within normal limits. Shared decision making was utilized regarding patient discharge to home versus continued hospital stay. Plans for discharge, follow-up instructions, and continued home medications discussed at length with the patient and patient was given time to ask questions. Patient verbalizes her understanding and agreement with this plan Discharge discussed with: patient - Time Spent with Patient Total time spent providing and/or coordinating discharge services: - Discharge Medications Prescriptions: GuaiFENesin ER [Mucinex] 1,200 mg PO BID #30 tbbp.12hr Metoprolol [Lopressor] 12.5 mg PO BID #60 tablet predniSONE [PredniSONE] 40 mg PO DAILY #6 tablet Home Medications: Albuterol Sulfate [Ventolin Hfa] 2 puff IH Q4H PRN 04/20/17 [History] Aspirin [Lo-Dose Aspirin EC] 81 mg PO DAILY 04/20/17 [History] Tiotropium Br/Olodaterol HCl [Stiolto Respimat Inhal [place]] 2 puff IH DAILY 04/20/17 [History] Atorvastatin Calcium [Lipitor] 20 mg PO HS 10/30/17 [History] Buspirone HCl [Buspar] 15 mg PO BID 10/30/17 [History] Ipratropium/Albuterol Neb [Duoneb] 3 ml IH TID PRN 10/30/17 [History] Roflumilast [Daliresp] 500 mcg PO DAILY 10/30/17 [History] FLUoxetine HCl [Fluoxetine HCl] 40 mg PO DAILY 03/26/18 [History] Fluticasone Furoate [Arnuity Ellipta] 1 puff IH DAILY 03/26/18 [History] Nicotine Patch [Nicoderm] 21 mg TP DAILY 03/26/18 [History] GuaiFENesin ER [Mucinex] 1,200 mg PO BID #30 tbbp.12hr 03/29/18 [Rx] Metoprolol [Lopressor] 12.5 mg PO BID #60 tablet 03/29/18 [Rx] predniSONE [PredniSONE] 40 mg PO DAILY #6 tablet 03/29/18 [Rx] Allergies/Adverse Reactions: Allergy/AdvReac Type Severity Reaction Status Date / Time Varenicline [From Chantix] Allergy Vomiting Verified 03/26/18 04:37 Date of admission: 03/26/18 12:17 Primary care physician: Tuyet Fisher CNP Consults: 03/26/18 12:09 Consult to Nurse Navigator [CONS] Routine Comment: Discharging clinician: Osvaldo Ng Anticipated date of discharge: 03/29/18 - Constitutional Vitals: Temp Pulse Resp BP Pulse Ox 98.3 F 89 18 138/78 98 03/29/18 11:00 03/29/18 11:00 03/29/18 11:31 03/29/18 11:00 03/29/18 11:31 General appearance: Present: cooperative, A&O X 3, pleasant, no acute distress, answers questions appropriately Exam: Constitutional: Awake, alert, engaged to conversation, pleasant, answers questions appropriately, in no acute distress, Cardiovascular rhythm regular, no murmurs gallops or rubs appreciated. Respiratory clear to auscultation bilaterally, no stridor, wheezes, rhonchi, or crackles appreciated. Abdomen: Abdomen is soft, scaphoid, nontender, nondistended Skin: No rashes, bruising, edema, or bleeding appreciated. - Head Head exam: Present: atraumatic, normocephalic - Eye Eye exam: Present: EOMI, PERRL. Absent: scleral icterus Pupils: Present: PERRL - Neck Neck exam general surgery: Present: supple, trachea midline. Absent: thyromegaly - Respiratory Respiratory exam: Present: CTAB. Absent: accessory muscle use, decreased breath sounds, prolonged expiratory phase, rales, respiratory distress, rhonchi, stridor, wheezes, tachypnea - Cardiovascular Cardiovascular exam: Present: RRR, +S1, +S2. Absent: clicks, diastolic murmur, distant heart sounds, gallop, irregular rhythm, JVD, rubs, +S3, +S4, systolic murmur - GI/Abdominal GI/Abdominal exam: Present: normal bowel sounds, soft. Absent: bruit, diminished bowel sounds, distended, firm, guarding, hepatomegaly, mass, rebound, rigid, tenderness - Neurological Exam Neurological exam: Present: alert, oriented X3, no focal deficits. Absent: facial droop, speech deficit - Psychiatric Psychiatric exam: Present: normal affect, normal mood - Skin Skin exam: Present: dry, intact, normal color, warm. Absent: cyanosis, diaphoretic, erythema - Patient Status Disposition: Home, Self-Care Condition: Good Functional capacity at discharge: independent ambulation Overall status at discharge: patient is progressing back to baseline - Discharge Instructions Instructions: Metoprolol (By mouth), Prednisone (By mouth), Guaifenesin (By mouth), Pneumonia (DC) Follow Up With: Tuyet Fisher CNP [Primary Care Provider] - 04/04/18 1:00 pm - Diet and Activity Activity: increase activity as tolerated, wear oxygen at all times Diet: advance to your usual diet <Nemesio Manzano Giorgi - Last Filed: 03/29/18 16:22> Orders not resulted at time of discharge: Pending orders 03/28/18 15:00 Culture,Sputum with Gram Stain [RM] Routine 03/26/18 12:14 Legionella Antigen [RM] Routine S. Pneumoniae Antigen [RM] Routine ECG 12 lead ECG [ECG] Routine 03/26/18 14:59 Culture,Blood [BC] Routine 03/26/18 17:03 ECG 12 lead ECG [ECG] Stat Date of Encounter: 03/29/18 - Discharge Diagnosis (1) COPD exacerbation Status: Acute (2) HTN (hypertension), benign Priority: Secondary Status: Chronic (3) Pneumonia and influenza Status: Acute (4) Tobacco abuse Status: Chronic (5) Acute and chronic respiratory failure Priority: Secondary Status: Acute Qualifiers: Respiratory failure complication: hypoxia Qualified Code(s): J96.21 - Acute and chronic respiratory failure with hypoxia (6) Hypokalemia Priority: Secondary Status: Resolved Hospital course: Ms. Knight is a 62 year old female - Time Spent with Patient Total time spent providing and/or coordinating discharge services: 37min Date of admission: 03/26/18 03:44 Primary care physician: Tuyet Fisher CNP Consults: 03/26/18 12:09 Consult to Nurse Navigator [CONS] Routine Comment: - Constitutional Vitals: Temp Pulse Resp BP Pulse Ox 98.3 F 89 18 138/78 98 03/29/18 11:00 03/29/18 11:00 03/29/18 11:31 03/29/18 11:00 03/29/18 11:31 - Attending Attestation I examined this patient and my medical decision-making was reviewed with the Resident Physician on 03/29/18. I agree with the documented findings, disposition and treatment plan as described except to the extent set forth below. Ms Knight has been admitted for acute exac COPD and pneumonia in the setting of recent influenza. She has received steroids, abx, aerosols and mucolytic. She has steadily improved and feels she is nearly at baseline. She is afebrile and feels ready for discharge home. Exam alert Comfortable Mucus membranes dry Heart reg and not tachy Lungs diminished but clear now Abd soft No edema Plan D/C Home today Steroids to complete and mucolytic. Betablocker decreased so monitor BP and heartrate.
[2018-03-29] MEDS ORDERED: MethylPREDNISolone 40 MG/ML VIAL IVP SCH (18:00)
== END 2018-03-29 14:43 | disposition home or self-care (01) ==
LOC: 2ANU → SUATTDRO 12:17
PROVIDERS: ADMIT Family Medicine; ATTEND Internal Medicine

== ENCOUNTER 2019-05-29 15:00 | Observation (INO) ==
[2019-05-29] MEDS ORDERED: Ipratropium/Albuterol Neb 3 ML IH ONE (16:13)
[2019-05-29] MEDS ORDERED: methylPREDNISolone 125 MG/2 ML VIAL IVP ONE (16:13)
[2019-05-29] MEDS ORDERED: levoFLOXacin 500 MG/100 ML 500 MG/100 ML BAG IVPB ONE (16:13)
[2019-05-29 16:17] LABS: Basophils # 0.1 K/mcL (0.0-0.2); Basophils % 0.9 %; Eosinophils % 8.8 %; Hematocrit 35.8 % (35.3-44.9); Hemoglobin 11.4 g/dL (11.5-15.4); Immature Granulocytes % 1.5 % (0-4); Lymphocytes # 1.1 K/mcL (0.6-4.6); Lymphocytes % 9.6 %; Mean Corpuscular HGB Conc 31.8 g/dL (31.6-35.5); Mean Corpuscular Hemoglobin 30.4 pg (28.0-33.3); Mean Corpuscular Volume 95.5 fL (83.0-100.0); Mean Platelet Volume 8.8 fL (9.4-12.4); Monocytes # 0.7 K/mcL (0.0-1.3); Monocytes % 6.2 %; Neutrophils # 8.2 K/mcL (1.6-8.9); Platelet Count 334 K/mcL (140-400); Red Blood Count 3.75 M/mcL (3.82-4.97); Red Cell Distribution Width 12.4 % (11.5-14.5); White Blood Count 11.2 K/mcL (4.3-11.1)
[2019-05-29 16:23] LABS: Prothrombin Time 11.3 Seconds (9.4-12.1)
[2019-05-29 16:26] LABS: Alanine Aminotransferase 20 Units/L (7-52); Albumin 4.1 g/dL (3.5-5.7); Albumin/Globulin Ratio 1.6 (1.1-2.2); Alkaline Phosphatase 88 Units/L (34-104); Aspartate Amino Transferase 24 Units/L (13-39); BUN/Creatinine Ratio 17 (6-26); Bilirubin,Total 0.3 mg/dL (0.3-1.0); Blood Urea Nitrogen 9 mg/dL (8-23); Calcium 8.9 mg/dL (8.6-10.3); Carbon Dioxide 30 mEq/L (23-29); Chloride 98 mEq/L (98-107); Globulin 2.5 g/dL (2.4-3.5); Glucose 120 mg/dL (70-105); Osmolality,Calculated 276 (280-300); Potassium 4.7 mEq/L (3.5-5.1); Sodium 133 mEq/L (136-145); Total Protein 6.6 g/dL (6.4-8.9); eGFR For African Americans > 60 (> 60); eGFR For Non-African Americans > 60 (> 60)
[2019-05-29] MEDS ORDERED: Acetaminophen 325 MG TABLET PO PRN (19:47)
[2019-05-29] MEDS: *HR* Heparin 5,000 UNIT/ML VIAL SQ SCH (21:22)
[2019-05-29] MEDS: Ipratropium/Albuterol Neb 3 ML IH SCH (21:47)
[2019-05-29 23:44] LABS: Adenovirus Not Detected (Not Detect); Bordetella Pertussis Not Detected (Not Detect); Chlamydophila pneumoniae Not Detected (Not Detect); Coronavirus 229E Not Detected (Not Detect); Coronavirus HKU1 DETECTED (Not Detect); Coronavirus NL63 Not Detected (Not Detect); Coronavirus OC43 Not Detected (Not Detect); Human Metapneumovirus Not Detected (Not Detect); Human Rhinovirus/Enterovirus Not Detected (Not Detect); Influenza A Subtype 2009 H1 Not Detected (Not Detect); Influenza B Not Detected (Not Detect); Mycoplasma pneumoniae Not Detected (Not Detect); Parainfluenza Virus 1 Not Detected (Not Detect); Parainfluenza Virus 2 Not Detected (Not Detect); Parainfluenza Virus 3 Not Detected (Not Detect); Parainfluenza Virus 4 Not Detected (Not Detect); Respiratory Syncytial Virus Not Detected (Not Detect)
[2019-05-30] MEDS: MethylPREDNISolone 40 MG/ML VIAL IVP SCH ×4 (00:07→16:32)
[2019-05-30] MEDS: Ipratropium/Albuterol Neb 3 ML IH SCH ×4 (03:59→22:19)
[2019-05-30 05:20] LABS: Basophils % 0.5 %; Hematocrit 35.4 % (35.3-44.9); Hemoglobin 11.1 g/dL (11.5-15.4); Immature Granulocytes % 2.6 % (0-4); Lymphocytes # 0.8 K/mcL (0.6-4.6); Lymphocytes % 11.9 %; Mean Corpuscular HGB Conc 31.4 g/dL (31.6-35.5); Mean Corpuscular Hemoglobin 29.7 pg (28.0-33.3); Mean Corpuscular Volume 94.7 fL (83.0-100.0); Mean Platelet Volume 8.9 fL (9.4-12.4); Monocytes # 0.1 K/mcL (0.0-1.3); Monocytes % 1.4 %; Neutrophils # 5.5 K/mcL (1.6-8.9); Platelet Count 319 K/mcL (140-400); Red Blood Count 3.74 M/mcL (3.82-4.97); Red Cell Distribution Width 12.1 % (11.5-14.5); Segmented Neutrophils % 83.6 %; White Blood Count 6.5 K/mcL (4.3-11.1)
[2019-05-30 05:41] LABS: BUN/Creatinine Ratio 23 (6-26); Blood Urea Nitrogen 12 mg/dL (8-23); Carbon Dioxide 29 mEq/L (23-29); Chloride 97 mEq/L (98-107); Glucose 151 mg/dL (70-105); Osmolality,Calculated 281 (280-300); Potassium 4.5 mEq/L (3.5-5.1); Sodium 134 mEq/L (136-145); eGFR For African Americans > 60 (> 60); eGFR For Non-African Americans > 60 (> 60)
[2019-05-30] MEDS: *HR* Heparin 5,000 UNIT/ML VIAL SQ SCH ×3 (05:50→20:30)
[2019-05-30] MEDS: levoFLOXacin 500 MG/100 ML 500 MG/100 ML BAG IVPB SCH (09:23)
[2019-05-30] MEDS: Aspirin Enteric Coated 81 MG Tablet PO SCH (09:24)
[2019-05-30] MEDS: FLUoxetine 20 MG CAPSULE PO SCH (09:58)
[2019-05-31] MEDS: MethylPREDNISolone 40 MG/ML VIAL IVP SCH ×5 (00:33→23:03)
[2019-05-31 03:18] LABS: Hemoglobin 9.7 g/dL (11.5-15.4); Mean Corpuscular HGB Conc 32.3 g/dL (31.6-35.5); Mean Corpuscular Hemoglobin 29.8 pg (28.0-33.3); Mean Corpuscular Volume 92.3 fL (83.0-100.0); Mean Platelet Volume 8.8 fL (9.4-12.4); Platelet Count 358 K/mcL (140-400); Red Blood Count 3.25 M/mcL (3.82-4.97); Red Cell Distribution Width 12.2 % (11.5-14.5)
[2019-05-31 03:29] LABS: BUN/Creatinine Ratio 33 (6-26); Blood Urea Nitrogen 16 mg/dL (8-23); Calcium 8.8 mg/dL (8.6-10.3); Carbon Dioxide 27 mEq/L (23-29); Chloride 99 mEq/L (98-107); Glucose 150 mg/dL (70-105); Osmolality,Calculated 280 (280-300); Potassium 4.3 mEq/L (3.5-5.1); Sodium 133 mEq/L (136-145); eGFR For African Americans > 60 (> 60); eGFR For Non-African Americans > 60 (> 60)
[2019-05-31] MEDS: Ipratropium/Albuterol Neb 3 ML IH SCH ×4 (03:45→22:20)
[2019-05-31 03:48] LABS: White Blood Count 17.1 K/mcL (4.3-11.1)
[2019-05-31] MEDS: *HR* Heparin 5,000 UNIT/ML VIAL SQ SCH ×3 (05:01→20:12)
[2019-05-31] MEDS: levoFLOXacin 500 MG/100 ML 500 MG/100 ML BAG IVPB SCH (08:57)
[2019-05-31] MEDS: Aspirin Enteric Coated 81 MG Tablet PO SCH (08:58)
[2019-05-31] MEDS: FLUoxetine 20 MG CAPSULE PO SCH (08:58)
[2019-05-31] MEDS ORDERED: Furosemide 40 MG TABLET PO PRN (10:42)
[2019-05-31] MEDS ORDERED: *HR* LORazepam 0.5 MG TABLET PO PRN (10:42)
[2019-05-31] MEDS: Budesonide/Formoterol 80/4.5 1 PUFF INH IH SCH ×2 (15:52→22:20)
[2019-05-31] MEDS ORDERED: Budesonide Neb 0.5 MG/2 ML IH SCH (21:00)
[2019-06-01] MEDS: Ipratropium/Albuterol Neb 3 ML IH SCH ×2 (04:35→10:24)
[2019-06-01 05:17] LABS: Hematocrit 31.5 % (35.3-44.9); Mean Corpuscular HGB Conc 31.7 g/dL (31.6-35.5); Mean Corpuscular Hemoglobin 29.7 pg (28.0-33.3); Mean Corpuscular Volume 93.5 fL (83.0-100.0); Mean Platelet Volume 8.7 fL (9.4-12.4); Platelet Count 362 K/mcL (140-400); Red Blood Count 3.37 M/mcL (3.82-4.97); Red Cell Distribution Width 12.2 % (11.5-14.5); White Blood Count 17.5 K/mcL (4.3-11.1)
[2019-06-01] MEDS: *HR* Heparin 5,000 UNIT/ML VIAL SQ SCH (05:33)
[2019-06-01 05:34] LABS: BUN/Creatinine Ratio 34 (6-26); Blood Urea Nitrogen 18 mg/dL (8-23); Carbon Dioxide 28 mEq/L (23-29); Chloride 97 mEq/L (98-107); Glucose 136 mg/dL (70-105); Osmolality,Calculated 278 (280-300); Potassium 4.4 mEq/L (3.5-5.1); Sodium 132 mEq/L (136-145); eGFR For African Americans > 60 (> 60); eGFR For Non-African Americans > 60 (> 60)
[2019-06-01] MEDS: MethylPREDNISolone 40 MG/ML VIAL IVP SCH (05:39)
[2019-06-01] MEDS: Aspirin Enteric Coated 81 MG Tablet PO SCH (08:32)
[2019-06-01] MEDS: FLUoxetine 20 MG CAPSULE PO SCH (08:32)
[2019-06-01] MEDS: levoFLOXacin 500 MG/100 ML 500 MG/100 ML BAG IVPB SCH (08:34)
[2019-06-01] MEDS: Budesonide/Formoterol 80/4.5 1 PUFF INH IH SCH (10:24)
[2019-06-01 11:31] VITALS: BP 101/69
== END 2019-06-01 14:55 | disposition home or self-care (01) ==
LOC: 3BNU 15:00 → EMEROOARM 15:00 → 3BNU 19:38
PROVIDERS: ADMIT Internal Medicine; ATTEND Internal Medicine

== ENCOUNTER 2020-03-16 16:31 | Observation (INO) ==
[2020-03-16] MEDS ORDERED: methylPREDNISolone 125 MG/2 ML VIAL IVP ONE (16:51)
[2020-03-16] MEDS ORDERED: Ipratropium/Albuterol Neb 3 ML IH ONE ×2 (16:51→20:05)
[2020-03-16 17:15] LABS: Basophils # 0.1 K/mcL (0.0-0.2); Basophils % 0.7 %; Eosinophils # 0.3 K/mcL (0.0-0.6); Eosinophils % 3.6 %; Hematocrit 35.9 % (35.3-44.9); Hemoglobin 10.7 g/dL (11.5-15.4); Immature Granulocytes % 0.6 % (0-4); Lymphocytes # 1.1 K/mcL (0.6-4.6); Lymphocytes % 14.1 %; Mean Corpuscular HGB Conc 29.8 g/dL (31.6-35.5); Mean Corpuscular Hemoglobin 26.6 pg (28.0-33.3); Mean Corpuscular Volume 89.1 fL (83.0-100.0); Mean Platelet Volume 8.8 fL (9.4-12.4); Monocytes # 0.5 K/mcL (0.0-1.3); Monocytes % 6.2 %; Platelet Count 322 K/mcL (140-400); Red Blood Count 4.03 M/mcL (3.82-4.97); Red Cell Distribution Width 16.9 % (11.5-14.5); Segmented Neutrophils % 74.8 %
[2020-03-16 17:26] LABS: Prothrombin Time 11.9 Seconds (9.4-12.1)
[2020-03-16 17:29] LABS: Activated Partial Thrombo Time 31.6 Seconds (26.0-36.0)
[2020-03-16 17:42] LABS: BUN/Creatinine Ratio 13 (6-26); Blood Urea Nitrogen 7 mg/dL (8-23); Calcium 8.7 mg/dL (8.6-10.3); Carbon Dioxide 31 mEq/L (23-29); Chloride 100 mEq/L (98-107); Glucose 102 mg/dL (70-105); Osmolality,Calculated 282 (280-300); Potassium 4.2 mEq/L (3.5-5.1); Sodium 137 mEq/L (136-145); Troponin I < 0.03 ng/mL (< 0.04); eGFR For African Americans > 60 (> 60); eGFR For Non-African Americans > 60 (> 60)
[2020-03-16] MEDS ORDERED: Azithromycin 250 MG TABLET PO ONE (20:09)
[2020-03-16] MEDS ORDERED: Acetaminophen 325 MG TABLET PO PRN (21:54)
[2020-03-16] MEDS ORDERED: Naloxone 0.4 MG/ML INJ IVP PRN (21:54)
[2020-03-16] MEDS ORDERED: Ondansetron ODT 4 MG TAB.RAPDIS SL PRN (21:54)
[2020-03-16 22:44] LABS: Adenovirus Not Detected (Not Detect); Bordetella Pertussis Not Detected (Not Detect); Chlamydophila pneumoniae Not Detected (Not Detect); Coronavirus 229E Not Detected (Not Detect); Coronavirus HKU1 Not Detected (Not Detect); Coronavirus NL63 Not Detected (Not Detect); Coronavirus OC43 Not Detected (Not Detect); Human Metapneumovirus Not Detected (Not Detect); Human Rhinovirus/Enterovirus Not Detected (Not Detect); Influenza A Subtype 2009 H1 Not Detected (Not Detect); Influenza B Not Detected (Not Detect); Mycoplasma pneumoniae Not Detected (Not Detect); Parainfluenza Virus 1 Not Detected (Not Detect); Parainfluenza Virus 2 Not Detected (Not Detect); Parainfluenza Virus 3 Not Detected (Not Detect); Parainfluenza Virus 4 Not Detected (Not Detect); Respiratory Syncytial Virus Not Detected (Not Detect)
[2020-03-17] MEDS: methylPREDNISolone 125 MG/2 ML VIAL IVP SCH ×2 (00:16→08:36)
[2020-03-17 06:57] LABS: Hemoglobin 10.6 g/dL (11.5-15.4); Mean Corpuscular HGB Conc 30.3 g/dL (31.6-35.5); Mean Corpuscular Volume 89.1 fL (83.0-100.0); Mean Platelet Volume 9.1 fL (9.4-12.4); Platelet Count 319 K/mcL (140-400); Red Blood Count 3.93 M/mcL (3.82-4.97); Red Cell Distribution Width 16.7 % (11.5-14.5); White Blood Count 7.5 K/mcL (4.3-11.1)
[2020-03-17 07:23] LABS: BUN/Creatinine Ratio 23 (6-26); Blood Urea Nitrogen 14 mg/dL (8-23); Calcium 8.6 mg/dL (8.6-10.3); Carbon Dioxide 29 mEq/L (23-29); Chloride 103 mEq/L (98-107); Glucose 185 mg/dL (70-105); Magnesium 2.2 mg/dL (1.6-2.6); Osmolality,Calculated 295 (280-300); Phosphorous 3.4 mg/dL (2.7-4.5); Potassium 4.3 mEq/L (3.5-5.1); Sodium 140 mEq/L (136-145); eGFR For African Americans > 60 (> 60); eGFR For Non-African Americans > 60 (> 60)
[2020-03-17 07:26] LABS: Thyroid Stimulating Hormone 0.259 mcIU/mL (0.340-5.600)
[2020-03-17] MEDS ORDERED: Budesonide Neb 0.5 MG/2 ML IH ONE (07:31)
[2020-03-17] MEDS: Ipratropium/Albuterol Neb 3 ML IH PRN ×2 (07:37→11:50)
[2020-03-17] MEDS ORDERED: Isovue-370 500 ML BOTTLE IVP ONE (07:44)
[2020-03-17 08:17] LABS: Triiodothyronine (T3) Free 2.76 pg/mL (2.50-3.90)
[2020-03-17] MEDS ORDERED: Aspirin Enteric Coated 81 MG Tablet PO SCH (09:00)
[2020-03-17] MEDS ORDERED: Azithromycin 500 MG in 0.9 % Sodium Chloride 250 ML IVPB SCH (09:00)
[2020-03-17] MEDS ORDERED: Benzonatate 100 MG CAPSULE PO SCH (09:00)
[2020-03-17] MEDS ORDERED: Budesonide Neb 0.5 MG/2 ML IH SCH (10:00)
[2020-03-17 11:47] VITALS: BP 124/72
== END 2020-03-17 15:45 | disposition home or self-care (01) ==
LOC: EMEROOARM 16:31 → 2ANU 16:31 → SUATTDRO 21:48 → 2ANU 22:03
PROVIDERS: ADMIT Student in an Organized Health Care Education/Training Program; ATTEND Family Medicine

== ENCOUNTER 2020-04-11 17:49 | Observation (INO) ==
[2020-04-11 18:54] LABS: Bacteria,Urine Few per hpf (None-Few); Bilirubin,Urine Negative (Negative); Blood,Urine Moderate (Negative); Clarity,Urine Turbid (Clear); Color,Urine Light-Orange (Yellow); Glucose,Urine (UA) 100 mg/dL (Normal); Hyaline Casts,Urine Many per lpf (None Seen); Ketones,Urine Negative (Negative); Leukocyte Esterase,Urine Negative (Negative); Mucus,Urine Few per lpf (None-Few); Nitrite,Urine Negative (Negative); PH,Urine 5.5 pH Units (5.0-8.0); Protein,Urine Negative (Neg-Trace); Specific Gravity,Urine 1.026 (1.010-1.025); Squamous Epithelial Cell,Urine Few per hpf (None-Few); Urobilinogen,Urine Normal (Normal)
[2020-04-11 19:45] LABS: Basophils # 0.1 K/mcL (0.0-0.2); Basophils % 0.5 %; Eosinophils % 0.2 %; Hematocrit 40.1 % (35.3-44.9); Hemoglobin 11.9 g/dL (11.5-15.4); Immature Granulocytes % 1.9 % (0-4); Lymphocytes # 1.1 K/mcL (0.6-4.6); Lymphocytes % 10.4 %; Mean Corpuscular HGB Conc 29.7 g/dL (31.6-35.5); Mean Corpuscular Hemoglobin 26.3 pg (28.0-33.3); Mean Corpuscular Volume 88.7 fL (83.0-100.0); Monocytes # 0.4 K/mcL (0.0-1.3); Monocytes % 3.8 %; Neutrophils # 8.4 K/mcL (1.6-8.9); Platelet Count 501 K/mcL (140-400); Red Blood Count 4.52 M/mcL (3.82-4.97); Red Cell Distribution Width 16.9 % (11.5-14.5); Segmented Neutrophils % 83.2 %; White Blood Count 10.1 K/mcL (4.3-11.1)
[2020-04-11 20:10] LABS: Alanine Aminotransferase 11 Units/L (7-52); Albumin 3.5 g/dL (3.5-5.7); Albumin/Globulin Ratio 2.2 (1.1-2.2); Alkaline Phosphatase 99 Units/L (34-104); Aspartate Amino Transferase 15 Units/L (13-39); BUN/Creatinine Ratio 18 (6-26); Bilirubin,Direct 0.1 mg/dL (0.0-0.2); Bilirubin,Indirect 0.2 mg/dL (0.0-1.0); Bilirubin,Total 0.3 mg/dL (0.3-1.0); Blood Urea Nitrogen 11 mg/dL (8-23); Calcium 8.2 mg/dL (8.6-10.3); Carbon Dioxide 26 mEq/L (23-29); Chloride 101 mEq/L (98-107); Globulin 1.6 g/dL (2.4-3.5); Glucose 240 mg/dL (70-105); Lipase 35 Units/L (11-82); Osmolality,Calculated 289 (280-300); Potassium 3.8 mEq/L (3.5-5.1); Sodium 136 mEq/L (136-145); Total Protein 5.1 g/dL (6.4-8.9); Troponin I < 0.03 ng/mL (< 0.04); eGFR For African Americans > 60 (> 60); eGFR For Non-African Americans > 60 (> 60)
[2020-04-11] MEDS ORDERED: 0.9 % Sodium Chloride 1,000 ML IVC SCH (20:45)
[2020-04-11] MEDS ORDERED: Acetaminophen 325 MG TABLET PO PRN (21:18)
[2020-04-11] MEDS ORDERED: Ondansetron ODT 4 MG TAB.RAPDIS SL PRN (21:18)
[2020-04-11] MEDS ORDERED: Naloxone 0.4 MG/ML INJ IVP PRN (21:18)
[2020-04-11] MEDS ORDERED: *HR* Dextrose 50 % in Water (Vial) 50 ML VIAL IVP PRN (21:22)
[2020-04-11] MEDS ORDERED: D5% in Water 1,000 ML IVC PRN (21:22)
[2020-04-11] MEDS ORDERED: Dextrose Gel 15 GM/37.5 ML TUBE PO PRN ×2 (21:22)
[2020-04-11] MEDS ORDERED: Budesonide Neb 0.5 MG/2 ML IH PRN (21:23)
[2020-04-11] MEDS ORDERED: Ipratropium/Albuterol Neb 3 ML IH PRN (22:00)
[2020-04-11] MEDS: Ringers Solution, Lactated 1,000 ML IVC SCH (22:54)
[2020-04-12] MEDS: *HR* Heparin 5,000 UNIT/ML VIAL SQ SCH ×2 (06:04→17:43)
[2020-04-12] MEDS ORDERED: Ipratropium/Albuterol Neb 3 ML IH PRN (06:11)
[2020-04-12] MEDS: Insulin LISPRO 300 UNITS/3 ML VIAL SUBQ SCH ×3 (07:30→17:46)
[2020-04-12] MEDS: Ipratropium/Albuterol Neb 3 ML IH SCH ×4 (07:51→17:53)
[2020-04-12] MEDS: Aspirin Enteric Coated 81 MG Tablet PO SCH (10:28)
[2020-04-12] MEDS: predniSONE 10 MG TABLET PO SCH (10:28)
[2020-04-12 11:27] LABS: Hematocrit 30.1 % (35.3-44.9); Mean Corpuscular HGB Conc 30.6 g/dL (31.6-35.5); Mean Corpuscular Hemoglobin 26.7 pg (28.0-33.3); Mean Corpuscular Volume 87.5 fL (83.0-100.0); Mean Platelet Volume 8.6 fL (9.4-12.4); Platelet Count 398 K/mcL (140-400); Red Blood Count 3.44 M/mcL (3.82-4.97); Red Cell Distribution Width 17.2 % (11.5-14.5); White Blood Count 10.2 K/mcL (4.3-11.1)
[2020-04-12 11:34] LABS: Hemoglobin 9.2 g/dL (11.5-15.4)
[2020-04-12 11:45] LABS: BUN/Creatinine Ratio 13 (6-26); Blood Urea Nitrogen 10 mg/dL (8-23); Calcium 7.9 mg/dL (8.6-10.3); Carbon Dioxide 30 mEq/L (23-29); Chloride 101 mEq/L (98-107); Glucose 99 mg/dL (70-105); Magnesium 1.8 mg/dL (1.6-2.6); Osmolality,Calculated 281 (280-300); Phosphorous 4.2 mg/dL (2.7-4.5); Potassium 3.1 mEq/L (3.5-5.1); Sodium 136 mEq/L (136-145); eGFR For African Americans > 60 (> 60); eGFR For Non-African Americans > 60 (> 60)
[2020-04-12] MEDS: Ringers Solution, Lactated 1,000 ML IVC SCH (17:43)
[2020-04-12] MEDS: Doxycycline 100 MG CAPSULE PO SCH (19:53)
[2020-04-12] MEDS: Benzonatate 100 MG CAPSULE PO SCH (19:53)
[2020-04-12] MEDS ORDERED: Insulin LISPRO 300 UNITS/3 ML VIAL SUBQ SCH (21:00)
[2020-04-13] MEDS: Ipratropium/Albuterol Neb 3 ML IH SCH ×3 (00:04→08:05)
[2020-04-13] MEDS: *HR* Heparin 5,000 UNIT/ML VIAL SQ SCH (05:34)
[2020-04-13 07:00] LABS: Hemoglobin 8.9 g/dL (11.5-15.4); Mean Corpuscular HGB Conc 30.7 g/dL (31.6-35.5); Mean Corpuscular Hemoglobin 27.3 pg (28.0-33.3); Mean Platelet Volume 8.9 fL (9.4-12.4); Platelet Count 357 K/mcL (140-400); Red Blood Count 3.26 M/mcL (3.82-4.97); White Blood Count 8.5 K/mcL (4.3-11.1)
[2020-04-13 07:21] LABS: BUN/Creatinine Ratio 15 (6-26); Blood Urea Nitrogen 7 mg/dL (8-23); Calcium 8.1 mg/dL (8.6-10.3); Carbon Dioxide 30 mEq/L (23-29); Chloride 101 mEq/L (98-107); Glucose 87 mg/dL (70-105); Magnesium 1.9 mg/dL (1.6-2.6); Osmolality,Calculated 287 (280-300); Potassium 3.3 mEq/L (3.5-5.1); Sodium 140 mEq/L (136-145); eGFR For African Americans > 60 (> 60); eGFR For Non-African Americans > 60 (> 60)
[2020-04-13 07:22] VITALS: BP 148/85
[2020-04-13] MEDS: Insulin LISPRO 300 UNITS/3 ML VIAL SUBQ SCH (08:41)
[2020-04-13] MEDS: Doxycycline 100 MG CAPSULE PO SCH (08:42)
[2020-04-13] MEDS: predniSONE 10 MG TABLET PO SCH (08:42)
[2020-04-13] MEDS: Benzonatate 100 MG CAPSULE PO SCH (08:42)
[2020-04-13] MEDS: Aspirin Enteric Coated 81 MG Tablet PO SCH (08:42)
== END 2020-04-13 10:17 | disposition home or self-care (01) ==
LOC: EMEROOARM 17:49 → 3BNU 17:49 → SUATTDRO 20:58 → 3BNU 20:59
PROVIDERS: ADMIT Student in an Organized Health Care Education/Training Program; ATTEND Internal Medicine

== ENCOUNTER 2021-01-23 13:43 | Observation (INO) ==
[2021-01-23] MEDS ORDERED: Isovue-370 500 ML BOTTLE IVP ONE (14:17)
[2021-01-23 14:28] LABS: Basophils # 0.1 K/mcL (0.0-0.2); Basophils % 0.6 %; Eosinophils # 0.2 K/mcL (0.0-0.6); Eosinophils % 0.9 %; Hemoglobin 12.5 g/dL (11.5-15.4); Immature Granulocytes % 3.7 % (0-4); Lymphocytes # 1.2 K/mcL (0.6-4.6); Lymphocytes % 7.2 %; Mean Corpuscular HGB Conc 32.1 g/dL (31.6-35.5); Mean Corpuscular Hemoglobin 29.6 pg (28.0-33.3); Mean Corpuscular Volume 92.4 fL (83.0-100.0); Mean Platelet Volume 8.9 fL (9.4-12.4); Monocytes # 0.8 K/mcL (0.0-1.3); Monocytes % 4.5 %; Neutrophils # 14.2 K/mcL (1.6-8.9); Platelet Count 355 K/mcL (140-400); Red Blood Count 4.22 M/mcL (3.82-4.97); Segmented Neutrophils % 83.1 %
[2021-01-23 14:49] LABS: BUN/Creatinine Ratio 25 (6-26); Blood Urea Nitrogen 14 mg/dL (8-23); Calcium 8.5 mg/dL (8.6-10.3); Carbon Dioxide 30 mEq/L (23-29); Chloride 99 mEq/L (98-107); Glucose 112 mg/dL (70-105); Osmolality,Calculated 281 (280-300); Sodium 135 mEq/L (136-145); eGFR For African Americans > 60 (> 60); eGFR For Non-African Americans > 60 (> 60)
[2021-01-23 14:50] LABS: Troponin I < 0.03 ng/mL (< 0.04)
[2021-01-23] MEDS ORDERED: 0.9 % Sodium Chloride 1,000 ML IVC ONE (16:22)
[2021-01-23] MEDS ORDERED: cefTRIAXone 1,000 MG in 0.9 % Sodium Chloride Mini Bag 100 ML IVPB ONE (16:22)
[2021-01-23] MEDS ORDERED: Naloxone 0.4 MG/ML INJ IVP PRN (16:35)
[2021-01-23] MEDS ORDERED: *HR* HYDROcodone/Acet 5/325 mg TABLET PO PRN (16:35)
[2021-01-23] MEDS ORDERED: Ondansetron 4 MG/2 ML VIAL IVP PRN (16:35)
[2021-01-23] MEDS ORDERED: Azithromycin 500 MG in 0.9 % Sodium Chloride 250 ML IVPB ONE ×2 (16:38→20:00)
[2021-01-23] MEDS ORDERED: Ipratropium/Albuterol Neb 3 ML IH PRN (16:39)
[2021-01-23] MEDS: Budesonide/Formoterol 160/4.5 1 PUFF INH IH SCH (19:44)
[2021-01-23] MEDS: Magic Mouthwash 10 ML UD Cup PO SCH (20:04)
[2021-01-23] MEDS: 0.9 % Sodium Chloride 1,000 ML IVC SCH (20:06)
[2021-01-23] MEDS: *HR* Heparin 5,000 UNIT/ML VIAL SQ SCH (20:07)
[2021-01-24] MEDS: *HR* Heparin 5,000 UNIT/ML VIAL SQ SCH ×2 (05:40→16:35)
[2021-01-24 06:00] LABS: Basophils # 0.1 K/mcL (0.0-0.2); Basophils % 0.8 %; Eosinophils # 0.3 K/mcL (0.0-0.6); Eosinophils % 2.4 %; Hematocrit 34.3 % (35.3-44.9); Immature Granulocytes % 4.2 % (0-4); Lymphocytes % 9.4 %; Mean Corpuscular HGB Conc 32.1 g/dL (31.6-35.5); Mean Corpuscular Hemoglobin 30.4 pg (28.0-33.3); Mean Corpuscular Volume 94.8 fL (83.0-100.0); Mean Platelet Volume 8.9 fL (9.4-12.4); Monocytes # 0.6 K/mcL (0.0-1.3); Monocytes % 5.9 %; Neutrophils # 8.1 K/mcL (1.6-8.9); Platelet Count 286 K/mcL (140-400); Red Blood Count 3.62 M/mcL (3.82-4.97); Red Cell Distribution Width 12.7 % (11.5-14.5); Segmented Neutrophils % 77.3 %; White Blood Count 10.5 K/mcL (4.3-11.1)
[2021-01-24 06:16] LABS: BUN/Creatinine Ratio 11 (6-26); Blood Urea Nitrogen 6 mg/dL (8-23); Calcium 7.7 mg/dL (8.6-10.3); Carbon Dioxide 27 mEq/L (23-29); Chloride 102 mEq/L (98-107); Glucose 89 mg/dL (70-105); Osmolality,Calculated 275 (280-300); Phosphorous 3.5 mg/dL (2.7-4.5); Potassium 3.9 mEq/L (3.5-5.1); Sodium 134 mEq/L (136-145); eGFR For African Americans > 60 (> 60); eGFR For Non-African Americans > 60 (> 60)
[2021-01-24] MEDS: 0.9 % Sodium Chloride 1,000 ML IVC SCH (07:35)
[2021-01-24] MEDS ORDERED: cefTRIAXone 1,000 MG in Water for inj. (sterile) 10 ML IVP SCH (09:00)
[2021-01-24] MEDS ORDERED: Azithromycin 500 MG in 0.9 % Sodium Chloride 250 ML IVPB SCH (09:00)
[2021-01-24] MEDS: Aspirin Enteric Coated 81 MG Tablet PO SCH (09:15)
[2021-01-24] MEDS: predniSONE 5 MG TABLET PO SCH (09:15)
[2021-01-24] MEDS: Cyanocobalamin (B-12) 1,000 MCG TABLET PO SCH (09:15)
[2021-01-24] MEDS: Ascorbic Acid 500 MG TABLET PO SCH (09:15)
[2021-01-24] MEDS: Magic Mouthwash 10 ML UD Cup PO SCH ×4 (09:16→16:35)
[2021-01-24] MEDS ORDERED: Furosemide 40 MG TABLET PO PRN (10:36)
[2021-01-24] MEDS: Budesonide/Formoterol 160/4.5 1 PUFF INH IH SCH ×2 (11:19→21:00)
[2021-01-24] MEDS: levoFLOXacin 750 MG TABLET PO SCH (11:37)
[2021-01-25] MEDS: *HR* Heparin 5,000 UNIT/ML VIAL SQ SCH (05:06)
[2021-01-25] MEDS: Budesonide/Formoterol 160/4.5 1 PUFF INH IH SCH (07:46)
[2021-01-25 07:47] VITALS: O2SAT 97
[2021-01-25] MEDS: Ascorbic Acid 500 MG TABLET PO SCH (08:42)
[2021-01-25] MEDS: levoFLOXacin 750 MG TABLET PO SCH (08:42)
[2021-01-25] MEDS: Aspirin Enteric Coated 81 MG Tablet PO SCH (08:43)
[2021-01-25] MEDS: predniSONE 5 MG TABLET PO SCH (08:46)
[2021-01-25] MEDS: Cyanocobalamin (B-12) 1,000 MCG TABLET PO SCH (08:54)
[2021-01-25] MEDS: Magic Mouthwash 10 ML UD Cup PO SCH ×2 (08:56→11:45)
[2021-01-25 12:00] VITALS: BP 111/72; PULSE 86; TEMP 97.5
== END 2021-01-25 12:56 | disposition home health service (06) ==
LOC: EMEROOARM 13:43 → 3BNU 13:43 → SUATTDRO 17:46 → 3BNU 17:47
PROVIDERS: ADMIT Internal Medicine; ATTEND Internal Medicine

== ENCOUNTER 2021-04-29 18:30 | Inpatient (IN) ==
[2021-04-29] MEDS ORDERED: Ipratropium/Albuterol Neb 3 ML IH ONE (20:32)
[2021-04-29] MEDS ORDERED: Isovue-370 500 ML BOTTLE IVP ONE (20:35)
[2021-04-29] MEDS ORDERED: Aspirin 325 MG TABLET PO ONE (20:38)
[2021-04-29 20:42] LABS: Basophils # 0.1 K/mcL (0.0-0.2); Basophils % 0.7 %; Eosinophils % 6.8 %; Hematocrit 40.3 % (35.3-44.9); Hemoglobin 12.4 g/dL (11.5-15.4); Immature Granulocytes % 1.1 % (0-4); Lymphocytes # 1.9 K/mcL (0.6-4.6); Lymphocytes % 13.7 %; Mean Corpuscular HGB Conc 30.8 g/dL (31.6-35.5); Mean Corpuscular Hemoglobin 29.9 pg (28.0-33.3); Mean Corpuscular Volume 97.1 fL (83.0-100.0); Monocytes # 1.2 K/mcL (0.0-1.3); Monocytes % 8.5 %; Neutrophils # 9.7 K/mcL (1.6-8.9); Platelet Count 335 K/mcL (140-400); Red Blood Count 4.15 M/mcL (3.82-4.97); Segmented Neutrophils % 69.2 %
[2021-04-29 20:44] LABS: VBG HCO3 29 mEq/L (21-27); VBG PCO2 69 mmHg (41-51); VBG PH 7.24 pH Units (7.32-7.42); VBG PO2 49 mmHg (25-50)
[2021-04-29 21:48] LABS: Alanine Aminotransferase 17 Units/L (7-52); Albumin 4.3 g/dL (3.5-5.7); Alkaline Phosphatase 94 Units/L (34-104); Aspartate Amino Transferase 23 Units/L (13-39); BUN/Creatinine Ratio 17 (6-26); Bilirubin,Direct 0.2 mg/dL (0.0-0.2); Bilirubin,Indirect 0.3 mg/dL (0.0-1.0); Bilirubin,Total 0.5 mg/dL (0.3-1.0); Blood Urea Nitrogen 11 mg/dL (8-23); Calcium 9.7 mg/dL (8.6-10.3); Carbon Dioxide 26 mEq/L (23-29); Chloride 100 mEq/L (98-107); Glucose 101 mg/dL (70-105); Osmolality,Calculated 284 (280-300); Sodium 137 mEq/L (136-145); eGFR For African Americans > 60 (> 60); eGFR For Non-African Americans > 60 (> 60)
[2021-04-29 21:49] LABS: Adenovirus Not Detected (Not Detect); Bordetella Pertussis Not Detected (Not Detect); Chlamydophila pneumoniae Not Detected (Not Detect); Coronavirus 229E Not Detected (Not Detect); Coronavirus HKU1 Not Detected (Not Detect); Coronavirus NL63 Not Detected (Not Detect); Coronavirus OC43 Not Detected (Not Detect); Human Metapneumovirus Not Detected (Not Detect); Human Rhinovirus/Enterovirus Not Detected (Not Detect); Influenza A Subtype 2009 H1 Not Detected (Not Detect); Influenza B Not Detected (Not Detect); Mycoplasma pneumoniae Not Detected (Not Detect); Parainfluenza Virus 1 Not Detected (Not Detect); Parainfluenza Virus 2 Not Detected (Not Detect); Parainfluenza Virus 3 Not Detected (Not Detect); Parainfluenza Virus 4 Not Detected (Not Detect); Respiratory Syncytial Virus Not Detected (Not Detect); SARS-CoV-2 Not Detected (Not Detect)
[2021-04-29] MEDS ORDERED: cefTRIAXone 1,000 MG in Water for inj. (sterile) 10 ML IVP ONE (21:51)
[2021-04-29] MEDS ORDERED: Azithromycin 500 MG in 0.9 % Sodium Chloride 250 ML IVPB ONE (21:51)
[2021-04-29 21:58] LABS: Albumin/Globulin Ratio 1.6 (1.1-2.2); Globulin 2.7 g/dL (2.4-3.5); Total Protein 6.9 g/dL (6.4-8.9); Troponin I < 0.03 ng/mL (< 0.04)
[2021-04-29 23:27] LABS: ABG Base Excess 0 mEq/L (-2 to 3); ABG HCO3 27 mEq/L (21-27); ABG Oxygen Saturation 98 % (95-98); ABG PCO2 53 mmHg (35-45); ABG PH 7.31 pH Units (7.32-7.45); ABG PO2 112 mmHg (85-104); ABG TCO2 28 mEq/L (20-26); Blood Gas Modality 3 LPM
[2021-04-30] MEDS ORDERED: Melatonin 3 MG TABLET PO PRN (00:27)
[2021-04-30] MEDS ORDERED: Acetaminophen 325 MG TABLET PO PRN (00:27)
[2021-04-30] MEDS ORDERED: Naloxone 0.4 MG/ML INJ IVP PRN (00:27)
[2021-04-30] MEDS ORDERED: Dextrose Gel 15 GM/37.5 ML TUBE PO PRN ×2 (02:26)
[2021-04-30] MEDS ORDERED: *HR* Dextrose 50 % in Water (Syg) 50 ML SYRINGE IVP PRN (02:26)
[2021-04-30] MEDS ORDERED: D5% in Water 1,000 ML IVC PRN (02:26)
[2021-04-30] MEDS: methylPREDNISolone 125 MG/2 ML VIAL IVP SCH ×3 (03:44→16:56)
[2021-04-30 04:01] LABS: Hematocrit 37.6 % (35.3-44.9); Hemoglobin 11.6 g/dL (11.5-15.4); Mean Corpuscular HGB Conc 30.9 g/dL (31.6-35.5); Mean Corpuscular Hemoglobin 30.1 pg (28.0-33.3); Mean Corpuscular Volume 97.4 fL (83.0-100.0); Mean Platelet Volume 8.8 fL (9.4-12.4); Platelet Count 286 K/mcL (140-400); Red Blood Count 3.86 M/mcL (3.82-4.97); Red Cell Distribution Width 13.6 % (11.5-14.5); White Blood Count 12.9 K/mcL (4.3-11.1)
[2021-04-30 04:11] LABS: INR 1.1; Prothrombin Time 12.2 Seconds (9.4-12.1)
[2021-04-30 04:14] LABS: Activated Partial Thrombo Time 33.2 Seconds (26.0-36.0)
[2021-04-30 04:16] LABS: BUN/Creatinine Ratio 24 (6-26); Blood Urea Nitrogen 13 mg/dL (8-23); Calcium 8.7 mg/dL (8.6-10.3); Carbon Dioxide 24 mEq/L (23-29); Chloride 101 mEq/L (98-107); Glucose 121 mg/dL (70-105); Osmolality,Calculated 285 (280-300); Phosphorous 5.2 mg/dL (2.7-4.5); Potassium 4.1 mEq/L (3.5-5.1); Sodium 137 mEq/L (136-145); eGFR For African Americans > 60 (> 60); eGFR For Non-African Americans > 60 (> 60)
[2021-04-30] MEDS: Ipratropium/Albuterol Neb 3 ML IH SCH ×6 (04:31→23:57)
[2021-04-30] MEDS: Budesonide/Formoterol 160/4.5 1 PUFF INH IH SCH ×2 (07:53→19:34)
[2021-04-30] MEDS: Chlorhexidine Rinse 15 ML MOUTHWASH MM SCH ×2 (09:34→21:41)
[2021-04-30] MEDS: Azithromycin 250 MG TABLET PO SCH (09:34)
[2021-05-01] MEDS: methylPREDNISolone 125 MG/2 ML VIAL IVP SCH ×3 (00:44→16:40)
[2021-05-01] MEDS: Ipratropium/Albuterol Neb 3 ML IH SCH ×6 (03:40→23:53)
[2021-05-01] MEDS: *HR* Enoxaparin 40 MG/0.4 ML SYRINGE SQ SCH (06:46)
[2021-05-01] MEDS ORDERED: clonazePAM 0.5 MG TABLET PO PRN (07:46)
[2021-05-01] MEDS: Budesonide/Formoterol 160/4.5 1 PUFF INH IH SCH ×2 (07:53→19:54)
[2021-05-01] MEDS: Benzonatate 100 MG CAPSULE PO PRN ×2 (09:24→16:40)
[2021-05-01] MEDS: Cyanocobalamin (B-12) 1,000 MCG TABLET PO SCH (09:25)
[2021-05-01] MEDS: Aspirin Enteric Coated 81 MG Tablet PO SCH (09:25)
[2021-05-01] MEDS: Chlorhexidine Rinse 15 ML MOUTHWASH MM SCH ×2 (09:25→22:46)
[2021-05-01] MEDS: Azithromycin 250 MG TABLET PO SCH (09:25)
[2021-05-01] MEDS: Venlafaxine XR (24 HR) 150 MG CAP.ER.24H PO SCH (09:25)
[2021-05-02] MEDS: methylPREDNISolone 125 MG/2 ML VIAL IVP SCH ×3 (01:16→17:33)
[2021-05-02] MEDS: Ipratropium/Albuterol Neb 3 ML IH SCH ×5 (03:53→20:21)
[2021-05-02] MEDS: *HR* Enoxaparin 40 MG/0.4 ML SYRINGE SQ SCH (06:41)
[2021-05-02] MEDS: Budesonide/Formoterol 160/4.5 1 PUFF INH IH SCH ×2 (07:37→20:21)
[2021-05-02] MEDS: Azithromycin 250 MG TABLET PO SCH (07:57)
[2021-05-02] MEDS: Venlafaxine XR (24 HR) 150 MG CAP.ER.24H PO SCH (07:57)
[2021-05-02] MEDS: Aspirin Enteric Coated 81 MG Tablet PO SCH (07:57)
[2021-05-02] MEDS: Cyanocobalamin (B-12) 1,000 MCG TABLET PO SCH (07:58)
[2021-05-02] MEDS: Chlorhexidine Rinse 15 ML MOUTHWASH MM SCH ×2 (07:59→20:16)
[2021-05-02 10:41] LABS: Basophils % 0.2 %; Hematocrit 32.6 % (35.3-44.9); Hemoglobin 10.4 g/dL (11.5-15.4); Immature Granulocytes % 1.6 % (0-4); Lymphocytes # 0.4 K/mcL (0.6-4.6); Lymphocytes % 3.1 %; Mean Corpuscular HGB Conc 31.9 g/dL (31.6-35.5); Mean Corpuscular Hemoglobin 29.9 pg (28.0-33.3); Mean Corpuscular Volume 93.7 fL (83.0-100.0); Mean Platelet Volume 8.8 fL (9.4-12.4); Monocytes # 0.3 K/mcL (0.0-1.3); Monocytes % 2.3 %; Neutrophils # 11.3 K/mcL (1.6-8.9); Platelet Count 286 K/mcL (140-400); Red Blood Count 3.48 M/mcL (3.82-4.97); Red Cell Distribution Width 13.7 % (11.5-14.5); Segmented Neutrophils % 92.8 %; White Blood Count 12.2 K/mcL (4.3-11.1)
[2021-05-02 12:37] LABS: BUN/Creatinine Ratio 41 (6-26); Blood Urea Nitrogen 27 mg/dL (8-23); Calcium 8.7 mg/dL (8.6-10.3); Carbon Dioxide 26 mEq/L (23-29); Chloride 102 mEq/L (98-107); Glucose 134 mg/dL (70-105); Magnesium 2.1 mg/dL (1.6-2.6); Osmolality,Calculated 291 (280-300); Phosphorous 2.9 mg/dL (2.7-4.5); Sodium 137 mEq/L (136-145); eGFR For African Americans > 60 (> 60); eGFR For Non-African Americans > 60 (> 60)
[2021-05-02] MEDS: Benzonatate 100 MG CAPSULE PO PRN (16:28)
[2021-05-02] MEDS ORDERED: Menthol 1 EACH LOZENGE PO PRN (20:06)
[2021-05-03] MEDS: Ipratropium/Albuterol Neb 3 ML IH SCH ×4 (00:06→11:35)
[2021-05-03] MEDS: *HR* Enoxaparin 40 MG/0.4 ML SYRINGE SQ SCH (06:36)
[2021-05-03] MEDS: Azithromycin 250 MG TABLET PO SCH (06:36)
[2021-05-03] MEDS: methylPREDNISolone 125 MG/2 ML VIAL IVP SCH (06:37)
[2021-05-03 07:01] VITALS: BP 136/78; PULSE 83; TEMP 98
[2021-05-03] MEDS: Venlafaxine XR (24 HR) 150 MG CAP.ER.24H PO SCH (07:51)
[2021-05-03] MEDS: Aspirin Enteric Coated 81 MG Tablet PO SCH (07:51)
[2021-05-03] MEDS: Cyanocobalamin (B-12) 1,000 MCG TABLET PO SCH (07:51)
[2021-05-03] MEDS: Chlorhexidine Rinse 15 ML MOUTHWASH MM SCH (07:54)
[2021-05-03] MEDS: Budesonide/Formoterol 160/4.5 1 PUFF INH IH SCH (08:36)
[2021-05-03 17:45] VITALS: O2SAT 97
== END 2021-05-03 12:45 | disposition home or self-care (01) | DRG 191 ==
LOC: 2ANU 18:30 → EMEROOARM 18:30 → SUATTDRO 04-30 00:24 → 2ANU 04-30 01:31
PROVIDERS: ADMIT Internal Medicine; ATTEND Internal Medicine